=== PATIENT | female | born 1995 ===

== ENCOUNTER 2020-09-14 14:00 | Outpatient (REF) | payer OTHER, SELFPAY | END 2020-09-14 14:01 | disposition home or self-care (01) | LOC: HO.LAB 14:00 | PROVIDERS: Visit Provider Internal Medicine | DX: Z20.828 Contact with and (suspected) exposure to other viral communicable diseases (principal) | CPT/HCPCS: C9803; U0003 ==

== ENCOUNTER 2020-10-17 13:52 | Outpatient (REF) | payer OTHER, SELFPAY | END 2020-10-17 13:53 | disposition home or self-care (01) | LOC: HO.LAB 13:52 | PROVIDERS: Visit Provider Internal Medicine | DX: Z20.822 Contact with and (suspected) exposure to COVID-19 (principal) | CPT/HCPCS: 36415; C9803; U0003 ==

== ENCOUNTER 2020-11-06 15:04 | Outpatient (REF) | payer OTHER, SELFPAY | END 2020-11-06 15:05 | disposition home or self-care (01) | LOC: HO.LAB 15:04 | PROVIDERS: Visit Provider Internal Medicine | DX: Z20.822 Contact with and (suspected) exposure to COVID-19 (principal) | CPT/HCPCS: 36415; C9803; U0003; U0005 ==

== ENCOUNTER 2021-09-25 10:32 | Outpatient (REF) | payer OTHER, SELFPAY ==
[2021-09-26 14:17] LABS: CT PCR NOT DETECTED (Not Detect.); NG PCR NOT DETECTED (Not Detect.)
[2021-09-27 09:02] LABS: BV Int Neg Control Negative (Negative); BV Int Pos Control Positive (Positive)
== END 2021-09-25 10:33 | disposition home or self-care (01) ==
LOC: HO.LAB 10:32
PROVIDERS: Visit Provider Advanced Practice Midwife
DX: Z01.419 Encounter for gynecological examination (general) (routine) without abnormal findings (principal); N92.1 Excessive and frequent menstruation with irregular cycle; Z11.59 Encounter for screening for other viral diseases; Z11.4 Encounter for screening for human immunodeficiency virus [HIV]; Z11.3 Encounter for screening for infections with a predominantly sexual mode of transmission; Z11.8 Encounter for screening for other infectious and parasitic diseases; Z79.3 Long term (current) use of hormonal contraceptives
CPT/HCPCS: 87480; 87491; 87510; 87591; 87660; 88142

== ENCOUNTER 2022-03-04 13:35 | Outpatient (REF) | payer OTHER, SELFPAY ==
[2022-03-05 13:11] LABS: BV Int Neg Control Negative (Negative); BV Int Pos Control Positive (Positive)
== END 2022-03-04 13:36 | disposition home or self-care (01) ==
LOC: HO.LAB 13:35
PROVIDERS: Visit Provider Advanced Practice Midwife
DX: Z30.09 Encounter for other general counseling and advice on contraception (principal); R87.615 Unsatisfactory cytologic smear of cervix; Z20.2 Contact with and (suspected) exposure to infections with a predominantly sexual mode of transmission
CPT/HCPCS: 87480; 87510; 87660; 88142; 99212

== ENCOUNTER 2022-04-26 09:38 | Outpatient (REF) | payer OTHER, SELFPAY ==
[2022-04-26 17:53] LABS: CT PCR NOT DETECTED (Not Detect.); NG PCR NOT DETECTED (Not Detect.)
[2022-04-27 15:12] LABS: BV Int Neg Control Negative (Negative); BV Int Pos Control Positive (Positive)
== END 2022-04-26 09:39 | disposition home or self-care (01) ==
LOC: HO.LAB 09:38
PROVIDERS: Visit Provider Advanced Practice Midwife
DX: Z01.419 Encounter for gynecological examination (general) (routine) without abnormal findings (principal); A59.9 Trichomoniasis, unspecified; Z11.3 Encounter for screening for infections with a predominantly sexual mode of transmission; Z11.8 Encounter for screening for other infectious and parasitic diseases; Z97.5 Presence of (intrauterine) contraceptive device
CPT/HCPCS: 87480; 87491; 87510; 87591; 87660; 99212

== ENCOUNTER 2022-06-04 12:32 | Outpatient (REF) | payer OTHER, SELFPAY ==
[2022-06-04 13:59] LABS: Hematocrit 35.6 % (37.0-47.0); Hemoglobin 11.1 g/dl (12.0-16.0); Mean Corpuscular HGB Conc 31.2 g/dl (31.0-35.0); Mean Corpuscular Hemoglobin 27.1 pg (27.0-33.0); Mean Corpuscular Volume 86.8 fL (80.0-98.0); Mean Platelet Volume 10.8 fL (9.4-12.3); Platelet Count 286 X10*3/uL (160-400)
[2022-06-04 14:28] LABS: Alanine Aminotransferase 12 U/L (0-31); Albumin Level 4.1 g/dL (3.5-5.0); Alkaline Phosphatase 84 U/L (39-117); Anion Gap 13 (12-20); Aspartate Amino Transferase 15 U/L (5-31); Blood Urea Nitrogen 7 mg/dL (9-16); Calcium 9.1 mg/dL (8.4-10.2); Carbon Dioxide 26 mmol/L (22-29); Chloride 105 mmol/L (96-108); Estimated Glomerular Filt Rate > 60; Glucose Fasting 86 mg/dL (60-99); Potassium 4.9 mmol/L (3.3-5.1); Sodium 139 mmol/L (135-145); Total Protein 7.7 g/dL (6.5-8.0)
[2022-06-04 14:36] LABS: TSH reflex Free T4 1.11 uIU/mL (0.32-4.0)
[2022-06-04 14:39] LABS: Bilirubin Direct < 0.2 mg/dL (0.0-0.5); Bilirubin Total 0.3 mg/dL (0.0-1.0)
== END 2022-06-04 12:33 | disposition home or self-care (01) ==
LOC: HO.WFDLDS 12:32
PROVIDERS: Visit Provider Hospitalist
DX: Z00.00 Encounter for general adult medical examination without abnormal findings (principal)
CPT/HCPCS: 36415; 80053; 80076; 82248; 84443; 85027

== ENCOUNTER 2022-10-02 15:33 | Emergency (ER) | payer OTHER, SELFPAY ==
--- NOTE | ~2022-10-02 | US_ITS ---
EXAMINATION: US ABDOMEN LIMITED CLINICAL INFORMATION: Right upper quadrant pain. COMPARISON: None TECHNIQUE: Real-time imaging of the right upper quadrant abdominal viscera. FINDINGS: PANCREAS: Visualized pancreas is grossly unremarkable. Portion of pancreatic tail is obscured by bowel gas precluding assessment. LIVER: Normal size measuring 13 cm in craniocaudal dimension. Slightly increased homogeneous hepatic echotexture, possibly mild steatosis. No liver lesion. No morphologic features of advanced cirrhosis. No intrahepatic biliary ductal dilation. Normal directional flow demonstrated in the main portal vein. GALLBLADDER: Normal. The gallbladder is physiologically distended without evidence of stones, sludge, polyps, wall thickening or pericholecystic fluid. Patient did report tenderness while scanning over the gallbladder per technologist note. COMMON BILE DUCT: Normal in caliber measuring 0.4 cm in diameter. RIGHT KIDNEY: Normal. No hydronephrosis. No renal calculi or focal parenchymal lesions. The kidney measures 8.6 cm in maximum dimension. FREE FLUID: None. US/US abdomen limited IMPRESSION: 1. No evidence of cholelithiasis or sonographic findings of acute cholecystitis. 2. No biliary ductal dilation. 3. Slightly increased hepatic echogenicity, possibly mild steatosis.
[2022-10-02 15:50] VITALS: BP 105/70; PULSE 89; RESP 18; TEMP 36.1; O2SAT 97; BMI 32.9
--- NOTE | 2022-10-02 15:51 | ED_ITS ---
HPI - Abdominal Pain General Chief Complaint: Abdominal Pain <JOANNE Oconnor - Last Filed: 10/02/22 15:53> Stated Complaint: gallbladder scan, urgent care referral <JOANNE Oconnor - Last Filed: 10/02/22 15:53> Time Seen by Provider: 10/02/22 18:47 <JOANNE Oconnor - Last Filed: 10/02/22 15:53> Source: patient <Adolfo Randhawa MD - Last Filed: 10/02/22 20:00> Mode of arrival: ambulatory <Adolfo Randhawa MD - Last Filed: 10/02/22 20:00> Limitations: no limitations <Adolfo Randhawa MD - Last Filed: 10/02/22 20:00> History of Present Illness HPI narrative: Patient is 27 years old healthy had COVID 2 weeks ago since then compla ining of pain in upper abdomen increases on eating food more localized on the right side no nausea no vomiting no diarrhea no urinary complaints patient is dull , no fever chills. <Adolfo Randhawa MD - Last Filed: 10/02/22 20:00> Related Data Home Medications: Home Medications Medication Instructions Recorded Confirmed etonogestrel 68 mg subdermal subdermal 03/04/22 06/04/22 implant (Nexplanon) Previous Rx's Medication Instructions Recorded albuterol sulfate 90 mcg/actuation 1 inh inhalation Q4-6H PRN 12/04/21 breath activated powder inhaler shortness of breath or wheezing #1 ea pantoprazole 40 mg tablet,delayed 40 mg PO DAILY #30 tabs 10/02/22 release (Protonix) <JOANNE Oconnor - Last Filed: 10/02/22 15:53> Allergies/Adverse Reactions: Allergies Allergy/AdvReac Type Severity Reaction Status Date / Time No Known Allergies Allergy Verified 10/02/22 15:53 <JOANNE Oconnor - Last Filed: 10/02/22 15:53> Review of Systems Review of Systems Yes all other systems are reviewed and are negative <Adolfo Randhawa MD - Last Filed: 10/02/22 20:00> PMFSH Past Medical History Medical History: Medical History Forehead laceration <JOANNE Oconnor - Last Filed: 10/02/22 15:53> Surgical History: Surgical History Hx of tonsillectomy S/P foot surgery, left [place] teeth removed <JOANNE Oconnor - Last Filed: 10/02/22 15:53> Family History Family History: Family History Father Diabetes Other Mental health disorder <JOANNE Oconnor - Last Filed: 10/02/22 15:53> Social History Social History: Social History Housing: Apartment Alcohol intake: never Patient Tobacco Use Status: Never used Tobacco e-Cigarette/Vaping Use: Never Used Second Hand Smoke Exposure: No Advance Directives: No Advance Directives Information Provided: No service: No Current occupational status: employed 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[employer] Gender identity: Female Cognitive needs: No Hearing needs: No Vision needs: No <JOANNE Oconnor - Last Filed: 10/02/22 15:53> Physical Exam ED Vital Signs: Vital Signs - 24 hr 10/02/22 15:50 10/02/22 18:49 Temperature 97.0 F 98.6 F Pulse Rate 89 92 Respiratory Rate 18 17 Blood Pressure 105/70 107/57 L Pulse Oximetry 97 99 Oxygen Delivery Method Room Air Room Air BMI result Body Mass Index 32.9 <JOANNE Oconnor - Last Filed: 10/02/22 15:53> Vital Signs - 24 hr 10/02/22 15:50 10/02/22 18:49 Temperature 97.0 F 98.6 F Pulse Rate 89 92 Respiratory Rate 18 17 Blood Pressure 105/70 107/57 L Pulse Oximetry 97 99 Oxygen Delivery Method Room Air Room Air BMI result Body Mass Index 32.9 <Adolfo Randhawa MD - Last Filed: 10/02/22 20:00> Appearance: Alert. Oriented X3. No acute distress. ENT: Pharynx normal. Oral Mucosa moist Neck: Normal inspection. Neck supple. CVS: Normal heart rate and rhythm. Pulses normal. Respiratory: No respiratory distress. Equal air entry bilateral, no wheezing/rales/rhonchi Abdomen: Soft mild tenderness ruq no rebound tenderness /guarding Bowel sounds are present, no mass palpable, no CVA tenderness Skin: Skin warm and dry. Normal skin color. Normal skin turgor. Extremities: No lower extremity edema. No calf tenderness Neuro: Oriented X 3. No motor deficit. <Adolfo Randhawa MD - Last Filed: 10/02/22 20:00> Course Course Course Narrative: RME - 27 yo female with history of COVID two weeks ago who presents to the ER from Urgent Care for evaluation of 1 week of post prandial lower abdominal pain. +Piepr's sign at Urgent Care and concern for possible gallbladder etiology. Will get labs and U/S for further evaluation. Stable to go back to the waiting room until treatment room is available. <JOANNE Oconnor - Last Filed: 10/02/22 15:53> Medical Decision Making Medical Decision Making MDM Narrative: Patient nonspecific upper abdominal pain ultrasound abdomen negative for gallbladder disease no gallstones showed hepatic steatosis. Patient advised with the fat intake/alcohol/carbohydrate and follow-up PCP <Adolfo Randhawa MD - Last Filed: 10/02/22 20:00> Lab Data MDM Lab Attestation statement: I reviewed the patient's lab results. <Adolfo Randhawa MD - Last Filed: 10/02/22 20:00> Result Diagrams: 10/02/22 18:06 10/02/22 18:06 <JOANNE Oconnor - Last Filed: 10/02/22 15:53> Labs: Lab Results 10/02/22 10/02/22 10/02/22 Range/Units 18:06 18:06 19:23 WBC 13.0 H (4.8-10.8) X10*3/uL RBC 4.67 (4.20-5.50) X10*6/uL Hgb 12.0 (12.0-16.0) g/dl Hct 38.6 (37.0-47.0) % MCV 82.7 (80.0-98.0) fL MCH 25.7 L (27.0-33.0) pg MCHC 31.1 (31.0-35.0) g/dl RDW 14.6 (11.0-16.0) % Plt Count 333 (160-400) X10*3/uL MPV 10.6 (9.4-12.3) fL Immature Gran % (Auto) 0.3 (0.0-0.4) % Neut % (Auto) 70.7 (45-73) % Lymph % (Auto) 23.6 (20-40) % [place] % (Auto) 4.5 (2-11) % Eos % (Auto) 0.5 (0-4) % Baso % (Auto) 0.4 (0-2) % Lymph # (Auto) 3.1 (1.2-4.9) X10*3/uL [place] # (Auto) 0.6 (0.1-1.2) X10*3/uL Eos # (Auto) 0.1 (0.0-0.4) X10*3/uL Baso # (Auto) 0.1 (0.0-0.2) X10*3/uL Abs Immat Gran (auto) 0.04 H (0.00-0.03) X10*3/uL Absolute Neuts (auto) 9.2 H (2.0-8.3) x10*3/uL Absolute Nucleated RBC 0.000 (0.0-0.012) X10*3/uL Nucleated RBC % (auto) 0.0 (0.0-0.2) /100WBC Sodium 139 (135-145) mmol/L Potassium 3.6 D (3.3-5.1) mmol/L Chloride 106 (96-108) mmol/L Carbon Dioxide 21 L (22-29) mmol/L Anion Gap 16 (12-20) BUN 10 (9-16) mg/dL Creatinine 0.77 (0.5-1.4) mg/dL Estim Creat Clear Calc 123.6 Estimated GFR > 60 Random Glucose 74 (60-115) mg/dL Calcium 9.8 D (8.4-10.2) mg/dL Magnesium 1.7 (1.6-2.6) mg/dL Total Bilirubin 0.4 (0.0-1.0) mg/dL Direct Bilirubin 0.2 (0.0-0.5) mg/dL AST 17 (5-31) U/L ALT 10 (0-31) U/L Alkaline Phosphatase 94 (39-117) U/L Total Protein 8.6 H (6.5-8.0) g/dL Albumin 4.6 (3.5-5.0) g/dL Lipase 16 (8-78) U/L Urine Color Yellow Urine Appearance Hazy Urine pH 5.5 (5.0-9.0) Ur Specific [place] 1.025 (1.005-1.025) Urine Protein Negative (Neg-Trace) mg/dL Urine Glucose (UA) Negative (Negative) mg/dL Urine Ketones Trace (Negative) mg/dL Urine Blood Negative (Negative) Urine Nitrite Negative (Negative) Ur Leukocyte Esterase Negative (Negative) Urine Test (NEGATIVE) 10/02/22 Range/Units 19:23 WBC (4.8-10.8) X10*3/uL RBC (4.20-5.50) X10*6/uL Hgb (12.0-16.0) g/dl Hct (37.0-47.0) % MCV (80.0-98.0) fL MCH (27.0-33.0) pg MCHC (31.0-35.0) g/dl RDW (11.0-16.0) % Plt Count (160-400) X10*3/uL MPV (9.4-12.3) fL Immature Gran % (Auto) (0.0-0.4) % Neut % (Auto) (45-73) % Lymph % (Auto) (20-40) % [place] % (Auto) (2-11) % Eos % (Auto) (0-4) % Baso % (Auto) (0-2) % Lymph # (Auto) (1.2-4.9) X10*3/uL [place] # (Auto) (0.1-1.2) X10*3/uL Eos # (Auto) (0.0-0.4) X10*3/uL Baso # (Auto) (0.0-0.2) X10*3/uL Abs Immat Gran (auto) (0.00-0.03) X10*3/uL Absolute Neuts (auto) (2.0-8.3) x10*3/uL Absolute Nucleated RBC (0.0-0.012) X10*3/uL Nucleated RBC % (auto) (0.0-0.2) /100WBC Sodium (135-145) mmol/L Potassium (3.3-5.1) mmol/L Chloride (96-108) mmol/L Carbon Dioxide (22-29) mmol/L Anion Gap (12-20) BUN (9-16) mg/dL Creatinine (0.5-1.4) mg/dL Estim Creat Clear Calc Estimated GFR Random Glucose (60-115) mg/dL Calcium (8.4-10.2) mg/dL Magnesium (1.6-2.6) mg/dL Total Bilirubin (0.0-1.0) mg/dL Direct Bilirubin (0.0-0.5) mg/dL AST (5-31) U/L ALT (0-31) U/L Alkaline Phosphatase (39-117) U/L Total Protein (6.5-8.0) g/dL Albumin (3.5-5.0) g/dL Lipase (8-78) U/L Urine Color Urine Appearance Urine pH (5.0-9.0) Ur Specific [place] (1.005-1.025) Urine Protein (Neg-Trace) mg/dL Urine Glucose (UA) (Negative) mg/dL Urine Ketones (Negative) mg/dL Urine Blood (Negative) Urine Nitrite (Negative) Ur Leukocyte Esterase (Negative) Urine Test NEGATIVE (NEGATIVE) <JOANNE Oconnor - Last Filed: 10/02/22 15:53> Lab Results 10/02/22 10/02/22 10/02/22 Range/Units 18:06 18:06 19:23 WBC 13.0 H (4.8-10.8) X10*3/uL RBC 4.67 (4.20-5.50) X10*6/uL Hgb 12.0 (12.0-16.0) g/dl Hct 38.6 (37.0-47.0) % MCV 82.7 (80.0-98.0) fL MCH 25.7 L (27.0-33.0) pg MCHC 31.1 (31.0-35.0) g/dl RDW 14.6 (11.0-16.0) % Plt Count 333 (160-400) X10*3/uL MPV 10.6 (9.4-12.3) fL Immature Gran % (Auto) 0.3 (0.0-0.4) % Neut % (Auto) 70.7 (45-73) % Lymph % (Auto) 23.6 (20-40) % [place] % (Auto) 4.5 (2-11) % Eos % (Auto) 0.5 (0-4) % Baso % (Auto) 0.4 (0-2) % Lymph # (Auto) 3.1 (1.2-4.9) X10*3/uL [place] # (Auto) 0.6 (0.1-1.2) X10*3/uL Eos # (Auto) 0.1 (0.0-0.4) X10*3/uL Baso # (Auto) 0.1 (0.0-0.2) X10*3/uL Abs Immat Gran (auto) 0.04 H (0.00-0.03) X10*3/uL Absolute Neuts (auto) 9.2 H (2.0-8.3) x10*3/uL Absolute Nucleated RBC 0.000 (0.0-0.012) X10*3/uL Nucleated RBC % (auto) 0.0 (0.0-0.2) /100WBC Sodium 139 (135-145) mmol/L Potassium 3.6 D (3.3-5.1) mmol/L Chloride 106 (96-108) mmol/L Carbon Dioxide 21 L (22-29) mmol/L Anion Gap 16 (12-20) BUN 10 (9-16) mg/dL Creatinine 0.77 (0.5-1.4) mg/dL Estim Creat Clear Calc 123.6 Estimated GFR > 60 Random Glucose 74 (60-115) mg/dL Calcium 9.8 D (8.4-10.2) mg/dL Magnesium 1.7 (1.6-2.6) mg/dL Total Bilirubin 0.4 (0.0-1.0) mg/dL Direct Bilirubin 0.2 (0.0-0.5) mg/dL AST 17 (5-31) U/L ALT 10 (0-31) U/L Alkaline Phosphatase 94 (39-117) U/L Total Protein 8.6 H (6.5-8.0) g/dL Albumin 4.6 (3.5-5.0) g/dL Lipase 16 (8-78) U/L Urine Color Yellow Urine Appearance Hazy Urine pH 5.5 (5.0-9.0) Ur Specific [place] 1.025 (1.005-1.025) Urine Protein Negative (Neg-Trace) mg/dL Urine Glucose (UA) Negative (Negative) mg/dL Urine Ketones Trace (Negative) mg/dL Urine Blood Negative (Negative) Urine Nitrite Negative (Negative) Ur Leukocyte Esterase Negative (Negative) Urine Test (NEGATIVE) 10/02/22 Range/Units 19:23 WBC (4.8-10.8) X10*3/uL RBC (4.20-5.50) X10*6/uL Hgb (12.0-16.0) g/dl Hct (37.0-47.0) % MCV (80.0-98.0) fL MCH (27.0-33.0) pg MCHC (31.0-35.0) g/dl RDW (11.0-16.0) % Plt Count (160-400) X10*3/uL MPV (9.4-12.3) fL Immature Gran % (Auto) (0.0-0.4) % Neut % (Auto) (45-73) % Lymph % (Auto) (20-40) % [place] % (Auto) (2-11) % Eos % (Auto) (0-4) % Baso % (Auto) (0-2) % Lymph # (Auto) (1.2-4.9) X10*3/uL [place] # (Auto) (0.1-1.2) X10*3/uL Eos # (Auto) (0.0-0.4) X10*3/uL Baso # (Auto) (0.0-0.2) X10*3/uL Abs Immat Gran (auto) (0.00-0.03) X10*3/uL Absolute Neuts (auto) (2.0-8.3) x10*3/uL Absolute Nucleated RBC (0.0-0.012) X10*3/uL Nucleated RBC % (auto) (0.0-0.2) /100WBC Sodium (135-145) mmol/L Potassium (3.3-5.1) mmol/L Chloride (96-108) mmol/L Carbon Dioxide (22-29) mmol/L Anion Gap (12-20) BUN (9-16) mg/dL Creatinine (0.5-1.4) mg/dL Estim Creat Clear Calc Estimated GFR Random Glucose (60-115) mg/dL Calcium (8.4-10.2) mg/dL Magnesium (1.6-2.6) mg/dL Total Bilirubin (0.0-1.0) mg/dL Direct Bilirubin (0.0-0.5) mg/dL AST (5-31) U/L ALT (0-31) U/L Alkaline Phosphatase (39-117) U/L Total Protein (6.5-8.0) g/dL Albumin (3.5-5.0) g/dL Lipase (8-78) U/L Urine Color Urine Appearance Urine pH (5.0-9.0) Ur Specific [place] (1.005-1.025) Urine Protein (Neg-Trace) mg/dL Urine Glucose (UA) (Negative) mg/dL Urine Ketones (Negative) mg/dL Urine Blood (Negative) Urine Nitrite (Negative) Ur Leukocyte Esterase (Negative) Urine Test NEGATIVE (NEGATIVE) <Adolfo Randhawa MD - Last Filed: 10/02/22 20:00> Discharge Plan Discharge Clinical Impression: Fatty liver <JOANNE Oconnor - Last Filed: 10/02/22 15:53> Patient Disposition: Home, Self-Care <JOANNE Oconnor - Last Filed: 10/02/22 15:53> Instructions: Non-Alcoholic Fatty Liver Disease (ED) <JOANNE Oconnor - Last Filed: 10/02/22 15:53> Additional Instructions: About carbohydrate/alcohol/greasy foods Drink plenty of fluids Protonix daily Follow with the PCP <JOANNE Oconnor - Last Filed: 10/02/22 15:53> Prescriptions: New pantoprazole [Protonix] 40 mg tablet,delayed release (DR/EC) 40 mg PO DAILY Qty: 30 0RF No Action albuterol sulfate 90 mcg/actuation aerosol powdr breath activated 1 inh inhalation Q4-6H PRN (Reason: shortness of breath or wheezing) Qty: 1 8RF Rx Instructions: please call me if unable to fill [phone] pt needs inhaler Nexplanon 68 mg implant subdermal <JOANNE Oconnor - Last Filed: 10/02/22 15:53>
[2022-10-02 18:18] LABS: MANUAL DIFF FLAG NO
[2022-10-02 18:19] LABS: Basophils Absolute Auto 0.1 X10*3/uL (0.0-0.2); Basophils Percent Auto 0.4 % (0-2); Eosinophils Absolute Auto 0.1 X10*3/uL (0.0-0.4); Eosinophils Percent Auto 0.5 % (0-4); Hematocrit 38.6 % (37.0-47.0); Imm Gran Abs Auto 0.04 X10*3/uL (0.00-0.03); Imm Gran Pct Auto 0.3 % (0.0-0.4); Lymphocytes Absolute Auto 3.1 X10*3/uL (1.2-4.9); Lymphocytes Percent Auto 23.6 % (20-40); Mean Corpuscular HGB Conc 31.1 g/dl (31.0-35.0); Mean Corpuscular Hemoglobin 25.7 pg (27.0-33.0); Mean Corpuscular Volume 82.7 fL (80.0-98.0); Mean Platelet Volume 10.6 fL (9.4-12.3); Monocytes Absolute Auto 0.6 X10*3/uL (0.1-1.2); Monocytes Percent Auto 4.5 % (2-11); Neutrophils Absolute Auto 9.2 x10*3/uL (2.0-8.3); Neutrophils Percent Auto 70.7 % (45-73); Platelet Count 333 X10*3/uL (160-400); Red Blood Count 4.67 X10*6/uL (4.20-5.50); Red Cell Distribution Width 14.6 % (11.0-16.0)
[2022-10-02 18:45] LABS: Alanine Aminotransferase 10 U/L (0-31); Albumin Level 4.6 g/dL (3.5-5.0); Alkaline Phosphatase 94 U/L (39-117); Anion Gap 16 (12-20); Aspartate Amino Transferase 17 U/L (5-31); Bilirubin Direct 0.2 mg/dL (0.0-0.5); Bilirubin Total 0.4 mg/dL (0.0-1.0); Blood Urea Nitrogen 10 mg/dL (9-16); Calcium 9.8 mg/dL (8.4-10.2); Carbon Dioxide 21 mmol/L (22-29); Chloride 106 mmol/L (96-108); Creatinine Clr Calc Pharmacy 123.6; Estimated Glomerular Filt Rate > 60; Glucose Random 74 mg/dL (60-115); Lipase 16 U/L (8-78); Magnesium 1.7 mg/dL (1.6-2.6); Potassium 3.6 mmol/L (3.3-5.1); Sodium 139 mmol/L (135-145); Total Protein 8.6 g/dL (6.5-8.0)
[2022-10-02 18:49] VITALS: BP 107/57; PULSE 92; RESP 17; TEMP 37; O2SAT 99
[2022-10-02 19:43] LABS: Appearance Urine Hazy; Color Urine Yellow; Glucose Urine UA Negative (Negative); Leukocyte Esterase Urine Negative (Negative); Nitrite Urine Negative (Negative); PH 5.5 (5.0-9.0); Specific Gravity - Urine 1.025 (1.005-1.025); Urine Blood Negative (Negative); Urine Ketones Trace mg/dL (Negative); Urine Protein Negative (Neg-Trace)
[2022-10-02 19:46] LABS: UPreg QC Valid YES; Urine Pregnancy NEGATIVE (NEGATIVE)
== END 2022-10-02 20:05 | disposition home or self-care (01) ==
PROVIDERS: Physician Assistant; Emergency Provider Internal Medicine; PCP Hospitalist
DX: K76.0 Fatty (change of) liver, not elsewhere classified (principal); R10.9 Unspecified abdominal pain; Z79.899 Other long term (current) drug therapy
CPT/HCPCS: 36415; 76705; 80048; 80076; 81003; 81025; 83690; 83735; 85025; 99283; 99284

== ENCOUNTER 2023-03-13 13:51 | Outpatient (REF) | payer OTHER, SELFPAY ==
[2023-03-14 12:03] LABS: CT PCR NOT DETECTED (Not Detect.); NG PCR NOT DETECTED (Not Detect.)
[2023-03-14 13:57] LABS: BV Int Neg Control Negative (Negative); BV Int Pos Control Positive (Positive)
== END 2023-03-13 13:52 | disposition home or self-care (01) ==
LOC: HO.LNP 13:51
PROVIDERS: PCP Hospitalist; Visit Provider Advanced Practice Midwife
DX: A59.9 Trichomoniasis, unspecified (principal); Z20.2 Contact with and (suspected) exposure to infections with a predominantly sexual mode of transmission; Z97.5 Presence of (intrauterine) contraceptive device
CPT/HCPCS: 0353U; 87480; 87510; 87660

== ENCOUNTER → 2023-03-20 08:48 | Outpatient (BNVA) | payer OTHER, SELFPAY | PROVIDERS: PCP Hospitalist; Visit Provider Advanced Practice Midwife | DX: Z30.46 Encounter for surveillance of implantable subdermal contraceptive (principal); Z30.42 Encounter for surveillance of injectable contraceptive | CPT/HCPCS: 11982; 81025; 96372; 99212 ==

== ENCOUNTER 2023-06-05 10:46 | Outpatient (AMB) | payer OTHER, SELFPAY ==
[2023-06-05 11:04] VITALS: BMI 31.8
--- NOTE | 2023-06-05 11:04 | AM.OFFVISNUR ---
Intake Vital Signs 06/05/23 11:04 Height 5 ft 5 in Weight 86.636 kg BMI 31.8 Intake Visit Reasons: Depo Allergies No Known Allergies Allergy (Verified 03/20/23 08:59) Nursing Note Lesly is here for her scheduled Depo-Provera inj. She reports slight decrease in her libido, but not concerning to her. Follow up in 12 weeks for next inj. Office Procedures Depo Questionnaire If YES to any of the following questions, please consult a provider. Date of last injection: 03/20/23 Date of last menstrual period: 04/03/23 Date of last gynecology exam: 03/13/23 Menstrual pattern since last injection has been: Light Irregular bleeding?: No Breast lumps or other breast changes?: No Changes in weight or appetite?: No Depression or changes in mood?: No Abnormal hair growth or loss?: No Skin problems (rash, acne, discoloration)?: No Pain at the injection site?: No Headaches?: No Nervousness?: No Abdominal pain or cramping?: No Dizziness or nausea?: No Fatigue or weakness?: No Decrease in sexual drive?: Yes (slight) Chest pain or shortness of breath?: No Swelling in arms or legs?: No Form completed by?: Robel Bolivar LPN Office Meds Depo-Provera 150 mg/mL intramuscular syringe Performing Provider: Lizeth Charlton CNM Performing Location: [facility] Administered by: Rebecca Bolivar LPN on 06/05/23 11:04 Dose Route Admin Location Dispensed Lot Number Expiration Date [facility] Jewel[employer] Sales Coordinator 150 mg IM Left deltoid 1 mL [id number] 07/22/25 23158-452-81 [facility] Coding Level of Care Code Established Pt Est Pt Level 1 (62035) Patient Type Established History Problem Focused Exam Problem Focused Medical Decision Making Straight Forward Time Spent (min) 15 Assessment & Plan Assessment & Plan Orders: Orders AMB Medroxyprogesterone Injection Patient Supplied Today Z30.42 - Encounter for surveillance of injectable contraceptive
== END 2023-06-05 10:54 | disposition home or self-care (01) ==
PROVIDERS: PCP Hospitalist; Visit Provider Advanced Practice Midwife
DX: Z30.42 Encounter for surveillance of injectable contraceptive (principal)

== ENCOUNTER → 2023-06-05 10:46 | Outpatient (BNVA) | payer OTHER, SELFPAY | PROVIDERS: PCP Hospitalist; Visit Provider Advanced Practice Midwife | DX: Z30.42 Encounter for surveillance of injectable contraceptive (principal) | CPT/HCPCS: 96372; 99211; J1050 ==

== ENCOUNTER 2023-09-30 10:29 | Outpatient (AMB) | payer OTHER, SELFPAY ==
--- NOTE | 2023-09-30 10:30 | A.OFFVIS_ITS ---
Intake Vital Signs 09/30/23 10:31 Height 5 ft 5 in Weight 200 lb BMI 33.3 BP 102/58 L Intake Visit Reasons: BC Consult Intake Note: Would like to restart the depo Collarette Separator Required: No Allergies No Known Allergies Allergy (Verified 09/30/23 10:32) Medication List - Last Reconciled 09/30/23 by Lizeth Charlton CNM albuterol sulfate 90 mcg/actuation 1 inh inhalation Q4-6H PRN NS guanfacine ER 2 mg PO DAILY medroxyprogesterone (Depo-Provera) 150 mg IM Q12W paroxetine HCl ER 25 mg PO DAILY trazodone 100 mg PO BEDTIME Is last menstrual period known: Yes Last menstrual period: 08/15/23 Post menopausal: No HPI BC Consult HPI Details Patient had had her Nexplanon removed and had started on Depo-Provera but then she missed her last shot so she was told she needed a visit to restarted again she says she has not had sex in many many weeks because she has been bleeding ever since the Depo-Provera wore off in August. And before that she says she used a condom. She definitely wants to get back on the Depo she has noticed that Depo and the Nexplanon both contribute a little bit to weight gain but she is trying to eat as good as she can and watch for that and do exercise and has started back at the gym she had bunion surgery on both feet in the past year but says that is much improved now and she is back working and thinks it was worth it and has much improved. She is not exactly sure when her next Pap is due but her annual should be coming up soon [facility] Medical History Forehead laceration Surgical History S/P foot surgery, left [place] teeth removed Hx of tonsillectomy Family History Father Diabetes Other Mental health disorder Social History Housing: Apartment Alcohol intake: never Patient Tobacco Use Status: Never used Tobacco e-Cigarette/Vaping Use: Never Used Second Hand Smoke Exposure: No service: No Current occupational status: employed 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[email or web address] Gender identity: Female Cognitive needs: No Hearing needs: No Vision needs: No Female Reproductive History Menstrual Age of Menarche: 14 Duration of menses: other Date of last menstrual period: 08/15/23 Total pregnancies: 0 Date of last pap smear: 03/05/22 (negative) Physical Exam Vital Signs: Last Vital Signs BP 102/58 L 09/30/23 10:31 BMI result Body Mass Index 33.3 Assessment & Plan Assessment & Plan (1) control counseling: Code(s): Z. - Encounter for other general counseling and advice on contraception Plan Reviewed the side effects of Depo-Provera as well as the Nexplanon which she had had in the past and her previous pattern of irregular menses that were occasionally heavy she would find it if they were very heavy they were shorter and if they were less heavy they would be longer. Since she had missed the last Depo she has been bleeding somewhat heavy and this can be within normal limits. She has not had unprotected sex so she may restart the Depo-Provera at her soonest opportunity while she is still bleeding in before she does have any unprotected sex I did review condom use as well. She will make her appointment for her annual exam whenever it is due and she can return to the nurses in the [facility] at the [facility] for the injection every 12 weeks. I also reviewed physical activity and diet with her to ensure she does not gain too much weight with the Depo-Provera Medications: Changed From medroxyprogesterone (Depo-Provera) To be given in office the day the Nexplanon is removed if on menses and PT negative and contracepting. 150 mg IM Q12W 1 mL 4RF To medroxyprogesterone (Depo-Provera) to be given in office before any upi and while on menses 150 mg IM Q12W 1 mL 4RF Coding Level of Care Code Est Pt Level 3 (00230) Diagnoses control counseling Z30.
[2023-09-30 10:31] VITALS: BP 102/58; BMI 33.3
== END 2023-09-30 11:30 | disposition home or self-care (01) ==
LOC: HO.HWSM 10:29
PROVIDERS: Visit Provider Advanced Practice Midwife
DX: Z30.09 Encounter for other general counseling and advice on contraception (principal)
CPT/HCPCS: 99213

== ENCOUNTER → 2023-09-30 10:29 | Outpatient (BNVA) | payer OTHER, SELFPAY | PROVIDERS: Visit Provider Advanced Practice Midwife | DX: Z30.09 Encounter for other general counseling and advice on contraception (principal) | CPT/HCPCS: 99212 ==

== ENCOUNTER 2023-10-08 13:26 | Outpatient (AMB) | payer OTHER, SELFPAY ==
[2023-10-08 13:47] VITALS: BMI 33.4
--- NOTE | 2023-10-08 13:47 | AM.OFFVISNUR ---
Intake Vital Signs 10/08/23 13:47 Height 5 ft 5 in Weight 201 lb BMI 33.4 Intake Visit Reasons: depo Intake Note: Pt is here for Depo restart. Last depo injection was 06/05/23. Pt denies any UPI in the last 2 weeks. UPT today was negative. Pt reports LMP was 08/16/23 and she has continued to bleed off and on since that time d/t missed dose of Depo at 12 weeks out. 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 Last depo injection was 06/05/23. Pt denies any UPI in the last 2 weeks. UPT today was negative. Pt reports LMP was 08/16/23 and she has continued to bleed off and on since that time d/t missed dose of Depo at 12 weeks out. No c/o. Pt tolerated injection well. She will schedule her next injection in 12 weeks. Pt verbalizes understanding and agrees with plan. No further questions. Office Procedures Depo Questionnaire If YES to any of the following questions, please consult a provider. Date of last injection: 06/05/23 Date of last menstrual period: 08/14/23 Date of last gynecology exam: 03/13/23 Menstrual pattern since last injection has been: Normal test in office results: Negative Irregular bleeding?: Yes Breast lumps or other breast changes?: No Changes in weight or appetite?: No Depression or changes in mood?: No Abnormal hair growth or loss?: No Skin problems (rash, acne, discoloration)?: No Pain at the injection site?: No Headaches?: No Nervousness?: No Abdominal pain or cramping?: No Dizziness or nausea?: No Fatigue or weakness?: No Decrease in sexual drive?: No Chest pain or shortness of breath?: No Swelling in arms or legs?: No Form completed by?: Jessica Alan boarding mother Meds Depo-Provera 150 mg/mL intramuscular syringe Performing Provider: Lizeth Charlton CNM Performing Location: [facility] Administered by: Jessica Alan on 10/08/23 13:56 Dose Route Admin Location Dispensed Lot Number Expiration Date [facility] Medical Information Specialist 150 mg IM left deltoid 1 mL [id number] 10/22/25 16853-783-57 [facility] Results AMB Test Urine AMB Test Urine Negative Last Edit by Jessica Alan on 10/08/23 13:56 Coding Level of Care Code Established Pt Est Pt Level 1 (55956) Patient Type Established History Problem Focused Medical Decision Making Straight Forward Time Spent (min) 16 Assessment & Plan Assessment & Plan Plan Pt will schedule next injection in 12 weeks. Orders: Orders AMB Medroxyprogesterone Injection Patient Supplied Today Z30.42 - Encounter for surveillance of injectable contraceptive Patient Instructions: Make appt for next injection in 12 weeks. Pt verbalizes understanding and agrees with plan. No further questions.
== END 2023-10-08 13:47 | disposition home or self-care (01) ==
PROVIDERS: Visit Provider Advanced Practice Midwife
DX: Z30.42 Encounter for surveillance of injectable contraceptive (principal)

== ENCOUNTER → 2023-10-08 13:26 | Outpatient (BNVA) | payer OTHER, SELFPAY | PROVIDERS: Visit Provider Advanced Practice Midwife | DX: Z30.42 Encounter for surveillance of injectable contraceptive (principal) | CPT/HCPCS: 96372; 99211; J1050 ==

== ENCOUNTER 2023-12-29 08:48 | Outpatient (AMB) | payer OTHER, SELFPAY ==
[2023-12-29 09:07] VITALS: BMI 33.6
--- NOTE | 2023-12-29 09:07 | AM.OFFVISNUR ---
Intake Vital Signs 12/29/23 09:07 Height 5 ft 5 in Weight 91.626 kg BMI 33.6 Intake Visit Reasons: DEPO Allergies No Known Allergies Allergy (Verified 09/30/23 10:32) Nursing Note Lesly is here today for her scheduled Depo-Provera inj. She denies any probles or concerns. Follow up in 12 weeks for next injection. Office Procedures Depo Questionnaire If YES to any of the following questions, please consult a provider. Date of last injection: 10/08/23 Date of last menstrual period: 12/12/23 Date of last gynecology exam: 12/11/22 Menstrual pattern since last injection has been: Light Irregular bleeding?: No Breast lumps or other breast changes?: No Changes in weight or appetite?: No Depression or changes in mood?: No Abnormal hair growth or loss?: No Skin problems (rash, acne, discoloration)?: No Pain at the injection site?: No Headaches?: No Nervousness?: No Abdominal pain or cramping?: No Dizziness or nausea?: No Fatigue or weakness?: No Decrease in sexual drive?: No Chest pain or shortness of breath?: No Swelling in arms or legs?: No Form completed by?: Robel Bolivar LPN Office Meds Depo-Provera 150 mg/mL intramuscular syringe Performing Provider: Lizeth Charlton CNM [place] [facility] [place] [facility] Administered by: Rebecca Bolivar LPN on 12/29/23 09:09 Dose Route Admin Location Dispensed Lot Number Expiration Date [facility] Office Machine Service Supervisor 150 mg IM left deltoid 1 mL [id number] 12/20/25 93397-268-00 [facility] Coding Level of Care Code Established Pt Est Pt Level 1 (34624) Patient Type Established History Problem Focused Exam Problem Focused Medical Decision Making Straight Forward Time Spent (min) 20 Assessment & Plan Assessment & Plan Orders: Orders AMB Medroxyprogesterone Injection Patient Supplied Today Z30.42 - Encounter for surveillance of injectable contraceptive Medications: New Depo-Provera (medroxyprogesterone) 150 mg IM ONCE 1 mL 0RF NS Z30.42 - Encounter for surveillance of injectable contraceptive
== END 2023-12-29 08:58 | disposition home or self-care (01) ==
PROVIDERS: Visit Provider Advanced Practice Midwife
DX: Z30.42 Encounter for surveillance of injectable contraceptive (principal)

== ENCOUNTER → 2023-12-29 08:48 | Outpatient (BNVA) | payer OTHER, SELFPAY | PROVIDERS: Visit Provider Advanced Practice Midwife | DX: Z30.42 Encounter for surveillance of injectable contraceptive (principal) | CPT/HCPCS: 96372; 99211; J1050 ==

== ENCOUNTER 2024-03-15 08:49 | Outpatient (AMB) | payer OTHER, SELFPAY ==
[2024-03-15 09:03] VITALS: BMI 34.4
--- NOTE | 2024-03-15 09:03 | AM.OFFVISNUR ---
Intake Vital Signs 03/15/24 09:03 Height 5 ft 5 in Weight 93.894 kg BMI 34.4 Intake Visit Reasons: Depo Allergies No Known Allergies Allergy (Verified 09/30/23 10:32) Nursing Note Lesly is here today for her scheduled Depo-Provera INJ.. Pt is c/o Break through bleeding over the last few months, with menstrual like cramping. Pt has AG tomorrow with DRAKE Charlton, and was advised to discuss with her these issues she is having. Pt verbs understanding. Office Procedures Depo Questionnaire If YES to any of the following questions, please consult a provider. Date of last injection: 12/29/23 Date of last menstrual period: 03/10/24 Date of last gynecology exam: 12/18/22 Menstrual pattern since last injection has been: Normal Irregular bleeding?: Yes Breast lumps or other breast changes?: No Changes in weight or appetite?: No Depression or changes in mood?: No Abnormal hair growth or loss?: No Skin problems (rash, acne, discoloration)?: No Pain at the injection site?: No Headaches?: No Nervousness?: No Abdominal pain or cramping?: Yes Dizziness or nausea?: No Fatigue or weakness?: No Decrease in sexual drive?: No Chest pain or shortness of breath?: No Swelling in arms or legs?: No Form completed by?: Robel Bolivar LPN Office Meds Depo-Provera 150 mg/mL intramuscular syringe Performing Provider: Lizeth Charlton CNM Performing Location: [facility] [place] [facility] Administered by: Rebecca Bolivar LPN on 03/15/24 09:03 Dose Route Admin Location Dispensed Lot Number Expiration Date [facility] Skiver Counter 150 mg IM Lt deltoid 1 mL [id number] 12/20/25 56552-216-72 [facility]. Coding Level of Care Code Established Pt Est Pt Level 1 (67932) Patient Type Established History Problem Focused Medical Decision Making Straight Forward Time Spent (min) 20 Assessment & Plan Assessment & Plan Orders: Orders AMB Medroxyprogesterone Injection Patient Supplied Today Z30.42 - Encounter for surveillance of injectable contraceptive Medications: New Depo-Provera (medroxyprogesterone) 150 mg IM ONCE 1 mL 0RF NS Z30.42 - Encounter for surveillance of injectable contraceptive
== END 2024-03-15 09:01 | disposition home or self-care (01) ==
PROVIDERS: Visit Provider Advanced Practice Midwife
DX: Z30.42 Encounter for surveillance of injectable contraceptive (principal)

== ENCOUNTER → 2024-03-15 08:49 | Outpatient (BNVA) | payer OTHER, SELFPAY | PROVIDERS: Visit Provider Advanced Practice Midwife | DX: Z30.42 Encounter for surveillance of injectable contraceptive (principal) | CPT/HCPCS: 96372; 99211; J1050 ==

== ENCOUNTER 2024-03-16 13:46 | Outpatient (REF) | payer OTHER, SELFPAY ==
[2024-03-16 23:08] LABS: CT PCR NOT DETECTED (Not Detect.); NG PCR NOT DETECTED (Not Detect.)
[2024-03-17 11:02] LABS: Bacterial Vaginosis PCR NEGATIVE (Negative); Candida Group PCR NOT DETECTED (Not Detect); Candida glab krusei PCR NOT DETECTED (Not Detect); Trichomonas vaginalis PCR NOT DETECTED (Not Detect)
== END 2024-03-16 13:47 | disposition home or self-care (01) ==
LOC: HO.LAB 13:46
PROVIDERS: Visit Provider Advanced Practice Midwife
DX: Z01.419 Encounter for gynecological examination (general) (routine) without abnormal findings (principal); N89.8 Other specified noninflammatory disorders of vagina; N92.1 Excessive and frequent menstruation with irregular cycle; Z20.2 Contact with and (suspected) exposure to infections with a predominantly sexual mode of transmission
CPT/HCPCS: 0352U; 0353U; 81025; 99395

== ENCOUNTER 2024-03-16 13:46 | Outpatient (AMB) | payer OTHER, SELFPAY ==
[2024-03-16 14:10] VITALS: BP 110/60; BMI 33.8
--- NOTE | 2024-03-16 14:10 | A.OFFVIS_ITS ---
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 Required: No Hydroelectric Component Machinist Services: Hydroelectric Component Machinist Present Information Interpreted: clinical only Tray Worker: Tray Worker Present Allergies No Known Allergies Allergy (Verified 03/16/24 14:10) Medication List - Last Reconciled 03/16/24 by Lizeth Charlton CNM albuterol sulfate 90 mcg/actuation 1 inh inhalation Q4-6H PRN NS guanfacine ER 2 mg PO DAILY medroxyprogesterone (Depo-Provera) 150 mg IM Q12W paroxetine HCl ER 25 mg PO DAILY trazodone 100 mg PO BEDTIME Is last menstrual period known: No (no period because depo) PFSH Medical History Forehead laceration Surgical History S/P foot surgery, left Mohler teeth removed Hx of tonsillectomy Family History Father Diabetes Other Mental health disorder Social History Housing: Apartment Alcohol intake: never Patient Tobacco Use Status: Never used Tobacco e-Cigarette/Vaping Use: Never Used Second Hand Smoke Exposure: No service: No Current occupational status: employed 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[employer], 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 Gender identity: Female Cognitive needs: No Hearing needs: No Vision needs: No Female Reproductive History Menstrual Age of Menarche: 14 Duration of menses: 3-5 days control method: progesterone injection Total pregnancies: 0 Date of last pap smear: 03/04/22 (negative,previous pap,09/26/2021,negative) History of abnormal pap smear: No Physical Exam Vital Signs: Last Vital Signs BP 110/60 03/16/24 14:10 BMI result Body Mass Index 33.8 Const General: healthy appearing, comfortable, no acute distress, well developed and alert Nutritional Appearance: average body habitus Orientation/consciousness: patient oriented x3 Limitations: no limitations HEENT Head: Yes normocephalic Neck Neck: Yes normal visual inspection Chest Chest palpation & inspection: normal inspection of the chest Breast/axilla inspection: normal inspection of the breasts and normal inspection of the axillae Breast/axilla palpation: normal palpation of the breasts and normal palpation of the axillae Resp Effort & Inspection: normal respiratory effort GI Inspection: Yes normal to inspection, No Abdominal wall edema and No distended Palpation (GI): Soft to palpation and nontender Other: External exam within normal limits vagina pink and moist cervix nulliparous pink smooth tightly closed small os. Uterus midposition mobile nontender adnexa nontender good tone with Kegel. General: Yes bladder normal to palpation External Female Exam: normal external appearance and normal appearance of the urethra Speculum Exam - Vagina: normal appearance of the vagina, normal palpation and normal vaginal discharge Speculum Exam - Cervix: normal appearance of the cervix, normal palpation and nontender Bimanual exam- vagina & uterus: normal bimanual exam, normal palpation, uterine size normal, bladder normal to palpation, consistency normal, normal palpation, uterine mobility normal, uterine shape normal, No Cervical tenderness present, non-tender and no cervical motion tenderness Bimanual Exam- Adnexa, other: normal adnexae, no masses, normal and No adnexal tenderness Neuro General: patient oriented x3 Results AMB Test Urine AMB Test Urine Negative Last Edit by Yvette Garcia CMA on 03/16/24 15:21 Results Reviewed Results Reviewed: Laboratory Last Values [facility]st Clinic Negative 03/16/24 15:20 Assessment & Plan Assessment & Plan (1) control counseling: Code(s): Z30.09 - Encounter for other general counseling and advice on contraception Category: Medical (2) Cervical cancer screening: Comment: pap neg 2018, pap done 09/25/21= inadequate, repeated 03/04/22= neg w- trich,(- treated, tanya 04/26/22) Code(s): Z12.4 - Encounter for screening for malignant neoplasm of cervix Category: Medical (3) Potential exposure to STD: Code(s): Z20.2 - Contact with and (suspected) exposure to infections with a predominantly sexual mode of transmission Category: Medical (4) Well woman exam with routine gynecological exam: Code(s): Z01.419 - Encounter for gynecological examination (general) (routine) without abnormal findings Category: Medical (5) Breakthrough bleeding on Depo-Provera: Comment: History explored in detail patient went from Nexplanon removal. She did have some bleeding the Nexplanon. Then to Depo-Provera then skipped Depo-Provera for 6 months then resumed Depo-Provera and has had some spotting since repeat hCG negative today discussed the bleeding may take some time to dissipate completely, given the off again on again use of hormonal contraception... Code(s): N92.1 - Excessive and frequent menstruation with irregular cycle Category: Medical Plan -----Discussed in this visit the following: healthy balanced diet, regular and consistent exercise, getting recommended health screens, doing the best she can for her particular health concerns, kegel exercises, pap smear screening and followup recommendations, mammography screening and SBE, normal changes in cycles in her life stage--- . The majority of this visit was spent trying to figure out patient's history of breakthrough bleeding. She did not remember having missed several months of the Depo-Provera and only thought that she had just gotten her 2nd 1 this year recently in fact she started on the Depo the day the Nexplanon was removed last February of 2023 receive the 2nd dose at the appropriate time then skipped Depo Provera for 6 months then resumed it after a visit in September and has come since at the appropriate times for repeat Depo-Provera is. She has been recently having irregular spotting and cramping when she gets the spotting and additionally when she has sex sometimes she spots discussed that this may be related to the irregular use of the Depo-Provera stopping and starting and that the lining of her uterus may have started buildup and therefore when she has orgasm there is uterine contractile activity that tries to eat mid any blood that is in there. This may take some time to work out but there isn't really another way to deal with it as she likes the Depo and wants to stay on it. She says she has an appointment for the next Depo and will double check it at the front line leader. She has not due for Pap smear today baby did testing for STIs. Also discussed weight management issues. She says she and her sister are going to the gym. Orders: Orders CT NG by PCR Today N89.8 - Other specified noninflammatory disorders of vagina, Z11.3 - Encounter for screening for infections with a predominantly sexual mode of transmission AMB HCG Urine Test Today Z32.02 - Encounter for test, result negative Bacterial Vaginosis Panel Today N89.8 - Other specified noninflammatory disorders of vagina Medications: Refilled medroxyprogesterone (Depo-Provera) to be given in office before any upi and while on menses 150 mg IM Q12W 1 mL 4RF Coding Level of Care Code Est Pt Prev Care 40-64y(76598) Diagnoses control counseling Z30.09 Cervical cancer screening Z12.4 Potential exposure to STD Z20.2 Well woman exam with routine gynecological exam Z01.419 Breakthrough bleeding on Depo-Provera N92.1
== END 2024-03-16 15:22 | disposition home or self-care (01) ==
LOC: HO.HWSM 13:46
PROVIDERS: Visit Provider Advanced Practice Midwife
DX: Z01.419 Encounter for gynecological examination (general) (routine) without abnormal findings (principal); Z30.09 Encounter for other general counseling and advice on contraception; Z12.4 Encounter for screening for malignant neoplasm of cervix; Z20.2 Contact with and (suspected) exposure to infections with a predominantly sexual mode of transmission; N92.1 Excessive and frequent menstruation with irregular cycle; Z32.02 Encounter for pregnancy test, result negative
CPT/HCPCS: 99395

== ENCOUNTER 2024-05-31 13:44 | Outpatient (AMB) | payer OTHER, SELFPAY ==
--- NOTE | 2024-05-31 14:15 | AM.OFFVISNUR ---
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 No c/o, no new medical problems and no new meds. Pt tolerated injection well. She will return in 12 weeks for her next injection. Pt verbalizes understanding and agrees with plan. No further questions. Office Procedures Depo Questionnaire If YES to any of the following questions, please consult a provider. Date of last injection: 03/15/24 Date of last gynecology exam: 03/16/24 Menstrual pattern since last injection has been: Not Applicable Irregular bleeding?: No Breast lumps or other breast changes?: No Changes in weight or appetite?: No Depression or changes in mood?: No Abnormal hair growth or loss?: No Skin problems (rash, acne, discoloration)?: No Pain at the injection site?: No Headaches?: No Nervousness?: No Abdominal pain or cramping?: No Dizziness or nausea?: No Fatigue or weakness?: No Decrease in sexual drive?: No Chest pain or shortness of breath?: No Swelling in arms or legs?: No Form completed by?: Jessica Alan RN Office Meds Depo-Provera 150 mg/mL intramuscular syringe Performing Provider: Lizeth Charlton CNM Performing Location[place] [facility] [place] [facility] Administered by: Jessica Alan on 05/31/24 14:21 Dose Route Admin Location Dispensed Lot Number Expiration Date [facility] Cot Assembler 150 mg IM left deltoid 1 mL [id number] 08/21/26 15607-721-08 [facility] Assessment & Plan Assessment & Plan (1) Encounter for management and injection of depo-Provera: Code(s): Z30.42 - Encounter for surveillance of injectable contraceptive Category: Medical Orders: Orders AMB Medroxyprogesterone Injection Patient Supplied Today Z30.42 - Encounter for surveillance of injectable contraceptive Medications: New Depo-Provera (medroxyprogesterone) 150 mg IM ONCE 1 mL 0RF NS Z30.42 - Encounter for surveillance of injectable contraceptive Patient Instructions: Pt will schedule next Depo injection in 12 weeks
[2024-05-31 14:16] VITALS: BMI 35.4
== END 2024-05-31 16:23 | disposition home or self-care (01) ==
LOC: HO.HWS 13:44
PROVIDERS: Visit Provider Advanced Practice Midwife
DX: Z30.42 Encounter for surveillance of injectable contraceptive (principal)

== ENCOUNTER → 2024-05-31 13:44 | Outpatient (BNVA) | payer OTHER, SELFPAY | PROVIDERS: Visit Provider Advanced Practice Midwife | DX: Z30.42 Encounter for surveillance of injectable contraceptive (principal) | CPT/HCPCS: 96372; 99211; J1050 ==

== ENCOUNTER 2024-08-23 10:48 | Outpatient (AMB) | payer OTHER, SELFPAY ==
[2024-08-23 11:21] VITALS: BMI 34.9
--- NOTE | 2024-08-23 11:21 | AM.OFFVISNUR ---
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 No c/o. No menses, pt has lost 3 lbs since her last injection. Pt tolerated injection well. She will schedule her next injection in 12 weeks. Pt verbalizes understanding and agrees with plan. No further quesitons. Office Procedures Depo Questionnaire If YES to any of the following questions, please consult a provider. Date of last injection: 05/31/24 Date of last gynecology exam: 03/16/24 Menstrual pattern since last injection has been: Not Applicable Irregular bleeding?: No Breast lumps or other breast changes?: No Changes in weight or appetite?: Yes Depression or changes in mood?: No Abnormal hair growth or loss?: No Skin problems (rash, acne, discoloration)?: No Pain at the injection site?: No Headaches?: No Nervousness?: No Abdominal pain or cramping?: No Dizziness or nausea?: No Fatigue or weakness?: No Decrease in sexual drive?: No Chest pain or shortness of breath?: No Swelling in arms or legs?: No Form completed by?: Jessica Alan RN Office Meds Depo-Provera 150 mg/mL intramuscular syringe Performing Provider: Lizeth Charlton CNM Performing Location: [facility] [place] [facility] Administered by: Jessica Alan on 08/23/24 11:25 Dose Route Admin Location Dispensed Lot Number Expiration Date [facility] Pump Erector 150 mg IM LGM 1 mL [id number] 09/21/26 08540-920-35 [facility] Assessment & Plan Assessment & Plan Orders: Orders AMB Medroxyprogesterone Injection Patient Supplied Today Z30.42 - Encounter for surveillance of injectable contraceptive Medications: New Depo-Provera (medroxyprogesterone) 150 mg IM ONCE 1 mL 0RF NS Z30.42 - Encounter for surveillance of injectable contraceptive Patient Instructions: Schedule next injection in 12 weeks.
== END 2024-08-23 11:15 | disposition home or self-care (01) ==
PROVIDERS: Visit Provider Advanced Practice Midwife
DX: Z30.42 Encounter for surveillance of injectable contraceptive (principal)

== ENCOUNTER → 2024-08-23 10:48 | Outpatient (BNVA) | payer OTHER, SELFPAY | PROVIDERS: Visit Provider Advanced Practice Midwife | DX: Z30.42 Encounter for surveillance of injectable contraceptive (principal) | CPT/HCPCS: 96372; 99211; J1050 ==

== ENCOUNTER 2024-11-09 08:40 | Outpatient (AMB) | payer OTHER, SELFPAY ==
--- NOTE | 2024-11-09 08:49 | AM.OFFVISNUR ---
Vital Signs 11/09/24 08:50 Height 5 ft 5 in Weight 219 lb BMI 36.4 Intake Visit Reasons: depo Allergies No Known Allergies Allergy (Verified 03/16/24 14:10) Nursing Note Lesly is here today for her scheduled Depo-Provera inj. She had a 9 lb weight gain but also had her boots on. She denies any problems or concerns. Next AG in 02/2025. Follow up next inj in 12 weeks. Office Procedures Depo Questionnaire If YES to any of the following questions, please consult a provider. Date of last injection: 08/23/24 Date of last menstrual period: 10/18/24 Date of last gynecology exam: 03/16/24 Menstrual pattern since last injection has been: Light Irregular bleeding?: No Breast lumps or other breast changes?: No Changes in weight or appetite?: Yes (gain of 9 lbs, pt had boots on also) Depression or changes in mood?: No Abnormal hair growth or loss?: No Skin problems (rash, acne, discoloration)?: No Pain at the injection site?: No Headaches?: No Nervousness?: No Abdominal pain or cramping?: No Dizziness or nausea?: No Fatigue or weakness?: No Decrease in sexual drive?: No Chest pain or shortness of breath?: No Swelling in arms or legs?: No Form completed by?: Robel Bolivar LPN Office Meds Depo-Provera 150 mg/mL intramuscular syringe Performing Provider: Lizeth Charlton CNM Performing Location: [facility] [place] [facility] Administered by: Rebecca Bolivar LPN on 11/09/24 08:50 Dose Route Admin Location Dispensed Lot Number Expiration Date [facility] Multifocal Button Grinder 150 mg IM left deltoid 1 mL [id number] 01/19/27 40253-084-49 [facility] Assessment & Plan Assessment & Plan Orders: Orders AMB Medroxyprogesterone Injection Patient Supplied Today Z30.42 - Encounter for surveillance of injectable contraceptive Medications: New Depo-Provera (medroxyprogesterone) 150 mg IM ONCE 1 mL 0RF NS Z30.42 - Encounter for surveillance of injectable contraceptive Coding Level of Care Code Established Pt Est Pt Level 1 (49520) Patient Type Established History Problem Focused Exam Problem Focused Medical Decision Making Straight Forward Time Spent (min) 20
[2024-11-09 08:50] VITALS: BMI 36.4
--- OUTSIDE RECORDS SUMMARY | 2024-11-09 09:08 | XMS_ITS | Data Portability ---
Author Organization [facility] [employer], [id number] Address [address] [place] [address] Assessment No assessment recorded. Plan of Treatment Reminders Order Date Submit Date Provider Last Modified By Organization Details Last Modified Time Details Appointments None record ed. Lab None record ed. Referral None record ed. Procedures None record ed. Surgeries None record ed. Imaging None record ed. Medication Orders None record ed. Patient TargetsNo targets recorded. Patient InstructionsNo instructions recorded. Reason for Referral None Reported. Procedures Surgical History Date Name Laterality Status Provider Name and Address Organization Details Recorded Time OC-UDS Send Out Template NON DOT completed Mariya Cabello [employer] 06/18/2024 15:55:20 Imaging Results None recorded. Procedure Notes None recorded. Medical Equipment None Reported. Medications Name Sig Start Date Stop Date Status Note LastModified by Organization Details LastModified Time trazodone 100 mg tablet TAKE 1 TABLET BY MOUTH EVERYDAY AT BEDTIME active Not Available Not Available No t Available medroxyproge sterone 150 mg/mL intramuscula r suspension INJECT 150 MG INTRAMUSCUL BRIANNA EVERY 12 WEEKS TO BE GIVEN IN OFFICE BEFORE ANY UPI AND ON MENSES active Not Available Not Available No t Available amoxicillin 875 mg-potassium clavulanate 125 mg tablet TAKE 1 TABLET BY MOUTH EVERY 12 HOURS active Not Available Not Available No t Available paroxetine ER 25 mg tablet,exten ded release 24 hr TAKE 1 TABLET BY MOUTH EVERYDAY AT BEDTIME active Not Available Not Available No t Available guanfacine ER 2 mg tablet,exten ded release 24 hr TAKE 1 TABLET BY MOUTH EVERY DAY IN THE MORNING active Not Available Not Available No t Available guanfacine ER 3 mg tablet,exten ded release 24 hr TAKE 1 TABLET BY MOUTH EVERY DAY IN THE MORNING active Not Available Not Available No t Available Vitals None Recorded Social History None recorded. Functional Status None recorded. Mental Status None recorded. Family History Nothing Reported. Medical History No medical history recorded. Gynecological HistoryNo gynecological history recorded. Obstetrics History GPAL:G 0 P 0 0 0 0 Past Encounters Encounter ID Performer Location Encounter Start Date Encounter Closed Date Diagnosis/Indication Diagnosis SNOMED-CT Code Diagnosis ICD10 Code Diagnosis Note [id number] [address] [place] [address] 06/24/2021 12:16:25 06/24/2021 14:13:08 [id number] [place] [address] [address] 06/18/2024 13:38:59 06/18/2024 15:58:24 History and physical examination, occupation [id number] Z02.1 Health Concerns Section Related Observation LastModified by Organization Detai ls LastModified Time None Recorded Concern Status LastModified by Organization Details LastModified Time None Recorded Advance Directives Directive None Recorded Payers Encounter Date Sequence Insurance Name Policy Number Policy Basilio Covered Member ID Basilio Member ID Guarantor Name 06/24/2021 1 [facility] - [facility] (MEDICAID REPLACEMENT - HMO) FELIPE Thompson [id number] Lesly Thompson 06/18/2024 [facility] [id number] Lesly Thompson OBGyn Episode No OBEpisode recorded.
== END 2024-11-09 08:50 | disposition home or self-care (01) ==
LOC: HO.HWS 08:40
PROVIDERS: Visit Provider Advanced Practice Midwife
DX: Z30.42 Encounter for surveillance of injectable contraceptive (principal)

== ENCOUNTER → 2024-11-09 08:40 | Outpatient (BNVA) | payer OTHER, SELFPAY | PROVIDERS: Visit Provider Advanced Practice Midwife | DX: Z30.42 Encounter for surveillance of injectable contraceptive (principal) | CPT/HCPCS: 96372; 99211; J1050 ==

== ENCOUNTER 2025-01-25 08:52 | Outpatient (AMB) | payer OTHER, SELFPAY ==
[2025-01-25 09:09] VITALS: BMI 37.0
--- NOTE | 2025-01-25 09:09 | AM.OFFVISNUR ---
Vital Signs 01/25/25 09:09 Height 5 ft 5 in Weight 222 lb 6 oz BMI 37.0 Intake Visit Reasons: depo Allergies No Known Allergies Allergy (Verified 03/16/24 14:10) Nursing Note Lesly is her today for her scheduled Depo-Provera inj. She denies any problems or concerns. AG is scheduled for 03/21 25 with Lizeth Charlton. Follow up in 12 wks for next inj. Office Procedures Depo Questionnaire If YES to any of the following questions, please consult a provider. Date of last injection: 11/09/24 Date of last gynecology exam: 03/16/24 Menstrual pattern since last injection has been: Not Applicable Irregular bleeding?: No Breast lumps or other breast changes?: No Changes in weight or appetite?: No Depression or changes in mood?: No Abnormal hair growth or loss?: No Skin problems (rash, acne, discoloration)?: No Pain at the injection site?: No Headaches?: No Nervousness?: No Abdominal pain or cramping?: No Dizziness or nausea?: No Fatigue or weakness?: No Decrease in sexual drive?: No Chest pain or shortness of breath?: No Swelling in arms or legs?: No Form completed by?: Robel Bolivar LPN Office Meds Depo-Provera 150 mg/mL intramuscular syringe Performing Provider: Lizeth Charlton CNM [place] [facility] [place] [facility] Administered by: Rebecca Bolivar LPN on 01/25/25 09:09 Dose Route Admin Location Dispensed Lot Number Expiration Date [facility] Linseed Oil Press Tender 150 mg IM left deltoid 1 mL [id number] 01/19/27 33732-697-70 [facility] Assessment & Plan Assessment & Plan Orders: Orders AMB Medroxyprogesterone Injection Patient Supplied Today Z30.42 - Encounter for surveillance of injectable contraceptive Medications: New Depo-Provera (medroxyprogesterone) 150 mg IM ONCE 1 mL 0RF NS Z30.42 - Encounter for surveillance of injectable contraceptive Coding Level of Care Code Established Pt Est Pt Level 1 (73720) Patient Type Established History Problem Focused Exam Problem Focused Medical Decision Making Straight Forward Time Spent (min) 20
--- OUTSIDE RECORDS SUMMARY | 2025-01-25 09:25 | XMS_ITS | Encounter Summary ---
Author Organization [facility] Address [address] [place], [place] [address] Phone Care Team Providers Care Manager Mobile Name Role Phone Gracie Swartz MD Primary Care Provider [phone] Encounter Details Date Type Department Care Team (Late st Contact Info) Description 05/08/2017 Conversion Encounter [facility] [place] [address] [place] [address] Social History Tobacco Use Types Packs/Day Years Used Date Smoking Tobacco: Never Comments:Never smoker Comments Unknown Sex and Gender Information Value Date Recorded Sex Assigned at Not on file Legal Sex Female 5:23 PM EDT Gender Identity Not on file Sexual Orientation Not on file documented as of this encounter Plan of Treatment Not on file documented as of this encounter Visit Diagnoses Not on filedocumented in this encounter Care Teams Manager Mobile Relationship Specialty Start Date End Date Gracie Swartz MD [address] [place] [address] PCP - General 05/02/17 11/20/22 documented as of this encounter
--- OUTSIDE RECORDS SUMMARY | 2025-01-25 09:26 | XMS_ITS | Data Portability ---
Author Organization [facility] [employer] [facility], [address] Address [address] [place] [address] Assessment No assessment recorded. Plan of Treatment [...] Out Template NON DOT completed Mariya [employer] 06/18/2024 15:55:20 Imaging Results None recorded. Procedure [...] SNOMED-CT Code Diagnosis ICD10 Code Diagnosis Note [id number] _[facility] _[facility] [address] [place] [address] 06/24/2021 12:16:25 06/24/2021 14:13:08 [id number] Dilshad Baker DO [address] [facility] [address] [place] [address] 06/18/2024 13:38:59 06/18/2024 15:58:24 History and physical examination, occupation [id number] Z02.1 Health Concerns Section Related Observation LastModified by Organization Detai ls LastModified Time None Recorded Concern Status LastModified by Organization Details LastModified Time None Recorded Advance Directives Directive None Recorded Payers Encounter Date Sequence Insurance Name Policy Number Policy Basilio Covered Member ID Basilio Member ID Guarantor Name 06/24/2021 1 [facility] (MEDICAID REPLACEMENT - HMO) FELIPE Thompson [id number] Lesly Thompson 06/18/2024 OC-ESCREEN [facility] [id number] Lesly Thompson OBGyn Episode No OBEpisode recorded.
--- OUTSIDE RECORDS SUMMARY | 2025-01-25 09:26 | XMS_ITS | Clinical Summary ---
Author Organization [employer] Address [address] [facility] [address] [place] [address] Care Team Providers Care Fountain Server Name Role Phone Unavailable Primary Care Provider Unavailabl e Social History Tobacco Use Types Packs/Day Years Used Date Smoking Tobacco: Never Assessed Comments Unknown Sex and Gender Information Value Date Recorded Sex Assigned at Female 07/22/2022 10:35 AM EDT Legal Sex Female 10:35 AM EDT Gender Identity Female 07/22/2022 10:35 AM EDT Sexual Orientation Straight 07/22/2022 10 :35 AM EDT Last Filed Vital Signs Vital Sign Reading Time Taken Comments Blood Pressure 98/60 09/20/2019 12:12 AM EST Pulse 78 09/20/2019 12:12 AM EST Temperature - - Respiratory Rate - - Oxygen Saturation - - Inhaled Oxygen Concentration - - Weight - - Height - - Body Mass Index - - Plan of Treatment Health Maintenance Due Date Last Done Comments Depression Screening 1997 Alcohol/Substance Use Screening 2009 Tobacco Screening 2009 Family Planning (PISQ) 2012 DTaP/Tdap/Td Vaccines (1 - Tdap) 2016 Hepatitis B Vaccines (1 of 3 - 19+ 3-dose series) 2016 Pap Smear 2018 COVID-19 Vaccine ( - 2023-2 5 season) 2024 Influenza Vaccine (#1) 2024 Zoster Vaccines (1 of 2) 2047 RSV Patients and Pa tients Aged 60 years or older (1 - 1-dose 75+ series) 2072 HIB Vaccines Aged Out No longer eligi ble based on patient's age to complete this topic HPV Vaccines Aged Out No longer eligi ble based on patient's age to complete this topic Hepatitis A Vaccines Aged Out No long er eligible based on patient's age to complete this topic IPV Vaccines Aged Out No longer eligi ble based on patient's age to complete this topic Meningococcal Vaccine Aged Out No shanika apryl eligible based on patient's age to complete this topic Pneumococcal Vaccine: Pediat rics (0 to 5 Years) and At-Risk Patients (6 to 49) Years) Aged Out No longer eligible b ased on patient's age to complete this topic RSV under 20 months Aged Out No longe r eligible based on patient's age to complete this topic Rotavirus Vaccines Aged Out No longer eligible based on patient's age to complete this topic
--- OUTSIDE RECORDS SUMMARY | 2025-01-25 09:26 | XMS_ITS | Encounter Summary ---
Author Organization [facility] Address [address] [place] [address] Phone Care Team Providers Care Luncheonette Manager Name Role Phone Gracie Swartz MD Primary Care Provider [phone] Encounter Details Date Type Department Care Team (Late st Contact Info) Description 07/03/2011 Documentation [facility] [place] [address] [place] [address] Family Medicine, Physician [address] [place] [address] Social History Tobacco Use Types Packs/Day Years [...] on filedocumented in this encounter Care Teams Luncheonette Manager Relationship Specialty Start Date End Date Gracie Swartz MD [address] [place] [address] REYN[place] Conner [address] PCP - General 05/02/17 11/20/22 documented as of this encounter
--- OUTSIDE RECORDS SUMMARY | 2025-01-25 09:26 | XMS_ITS | Encounter Summary ---
Author Organization [facility] Address [address] [place] [address] Phone Care Team Providers Care Cannoneer Name Role Phone Gracie Swartz MD Primary Care Provider [phone] Encounter Details Date Type Department Care Team (Late st Contact Info) Description 06/18/2011 Documentation [facility] [place] Family Medicine [address] [place] [address] Family Medicine, Physician [address] [place] [address] Social History Tobacco Use Types Packs/Day Years [...] on filedocumented in this encounter Care Teams Cannoneer Relationship Specialty Start Date End Date Gracie Swartz MD [address] [place] [address] [place] [address] PCP - General 05/02/17 11/20/22 documented as of this encounter
--- OUTSIDE RECORDS SUMMARY | 2025-01-25 09:26 | XMS_ITS | Clinical Summary ---
Author Organization [facility] Address [address] [place] [address] Phone Care Team Providers Care Machine Wiper Name Role Phone Unavailable Primary Care Provider Unavailabl e Allergies No known active allergies Medications medroxyPROGESTERon e 150 MG/ML injection TAKE TO DOCTOR'S OFFICE FOR ADMINISTRATION EVERY 3 MONTHS. 4 10/13/19 18 Active loratadine (CLARITIN) 10 MG tabletIndications: Allergic conjunctivitis of both eyes Take 1 tablet (10 mg total) by mouth daily. 30 tablet 1 12/02/19 18 Active ibuprofen 200 MG tablet TAKE 3 TABLETS BY MOUTH EVERY 6 HOURS NEEDED FOR PAIN OR FEVER 0 12/10/19 18 Active Active Problems Problem Noted Date Diagnosed Date Mild intermittent asthma without complication Overview (12/01/2017): used albuterol & flovent when younger. No issues in years till needed albuterol in 2016 for a persistent cough Assessment & Plan (01/05/2019 3:10 PM EDT): No issues in years Assessment & Plan (01/01/2018 8:14 AM EDT): No need for albuterol in > 1 year Has inhaler at home to have just in case Anemia 12/21/2016 Overview (01/01/2018): Microcytic. Started on Fe 325 mg BID 12/21/16. Needed Fe for anemia in 2013. Poor diet. No blood in stool or heavy menses. Started Depo 01/01/17 & last HgB 11/2017 was 11.7 Assessment & Plan (01/05/2019 3:10 PM EDT): Will check CBC today Assessment & Plan (01/01/2018 7:36 AM EDT): Last year needed Fe for HgB 9. 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 Discharged from Endo in 2013. Needs yearly TFTs. Refer back if becomes hypothyroid Assessment & Plan (01/05/2019 3:10 PM EDT): Needs TFTs yearly Off meds No longer seeing Endo since no need for meds Assessment & Plan (01/01/2018 7:33 AM EDT): Needs yearly TFTs Immunizations Immunization Administration Dates Next Due DTP 11/29/1998, 8,1997,08/31 DTaP 5 09/01/2001 HPV, Quadrivalent 07/06/2009,03/03/2009,12/30/19 09 Hep A, ped/adol 12/12/2015,12/01/2014 Hep B, ped/adol 02/23/1998,1997,1997 Hib (PRP-T) 08/31/1998, 8,1997,08/31 IPV 09/01/2001 Influenza, injectable, quadrivalent 12/01/2014 Influenza, injectable, quadr ivalent, preservative free 07/25/2018,01/01/2018,12/19/2016,11/03 Influenza, injectable, trivalent 003,07/29/2002,09/01/2001,09/25,08/25/2000 MMR 01/26/2003,09/01/2001,06/09/1998 Meningococcal Conj (Menactra) MCV4P 12/01/2014,0 12/29/2008 OPV 1997,1997,1997 Pneumococcal Conjugate 08/25/2000 Td (adult) (Tenivac), 5 Lf t etanus toxoid, PF, adsorbed 01/05/2019 Tdap 12/29/2008 Family History Medical History Relation Name Comments Asthma Brother Alcoholism Maternal Grandfather Migraines Mother Relation Name Status Comments Brother Father Alive Father: Alive a nd well Maternal Grandfather Materna l grandfather: ETOH, Maternal Grandmother Materna l grandmother: Hyperlipidemia, Hypertension, Diabetes mellitus, Asthma Mother Alive Mother: Migrain es Other No family histo ry of Migraines, No family history of Seizure disorder, Family history of Diabetes mellitus, Family history of Obesity, No family history of ADD/ADHD, No family history of Hyperlipidemia, No family history of *Thrombophilia, No family history of *CVA/Stroke, No family history of Deafness, No family history of Developmental dislocation of hip, No family history of Cancer, No family history of *Heart Disease, Family history of Asthma, No family history of Strabismus, No family history of *Sudden /HI under 55 Sister Alive Sister: Asthma Social History Tobacco Use Types Packs/Day Years Used Date Smoking Tobacco: Never Smokeless Tobacco: Never Comments:Never smoker Alcohol Use Standard Drinks/Week Comments Yes 0 (1 standard drink = 0.6 oz pur e alcohol) Occas Hunger/Food Answer Date Recorded No 01/05/2019 Stable Housing Answer Date Recorded 0 01/05/2019 Transportation Concerns Answer Date Rec orded No 01/05/2019 Hazards in Home Answer Date Recorded No 01/05/2019 Financing Utilities Answer Date Recorde d No 01/05/2019 Safety at Home Answer Date Recorded No 01/05/2019 Outside Support Answer Date Recorded No 01/05/2019 Understanding Health Concerns Answer Da te Recorded No 01/05/2019 Financing Health Concerns Answer Date R ecorded No 01/05/2019 Missing School or Work Answer Date Johnathan rded No 01/05/2019 Comments No Sex and Gender Information Value Date Recorded Sex Assigned at Not on file Legal Sex Female 5:23 PM EDT Gender Identity Not on file Sexual Orientation Not on file Last Filed Vital Signs Vital Sign Reading Time Taken Comments Blood Pressure 112/65 01/05/2019 2:48 PM EDT Pulse 80 01/05/2019 2:48 PM EDT Temperature 36.8 ??C (98.2 ??F) 01/05/2019 2:48 PM ED T Respiratory Rate - - Oxygen Saturation - - Inhaled Oxygen Concentration - - Weight 70.2 kg (154 lb 12.8 oz) 01/05/2019 2:48 PM EDT Height 162.6 cm (5' 4 ) 01/05/2019 2:48 PM EDT Body Mass Index 26.57 01/05/2019 2:48 PM EDT Plan of Treatment Health Maintenance Due Date Last Done Comments Influenza Vaccines (#1) 2024 07/25/20 18, 01/01/2018, 12/19/2016, Additional history exists COVID-19 Vaccine (2023- season) 2024 DTaP,Tdap,and Td Vaccines (8 - Td or Tdap) 01/05/2029 01/05/2019, 12/29/2008, 09/01/2001, Additional history exists Hepatitis B Vaccines Completed 02/23/1998, 1997, 1997 HIB Vaccines Completed 08/31/1998, 05/1998, 1997, Additional history exists Pneumococcal Vaccine Completed 08/25/2000 IPV Vaccines Completed 09/01/2001, 05/1998, 1997, Additional history exists MMR Vaccines Completed 01/26/2003, 08/22, 06/09/1998 HPV Vaccines Completed 07/06/2009, 02/20, 12/29/2008 Meningococcal Vaccine Completed 12/01/2014, 009 Hepatitis A Vaccines Completed 12/12/2015, 12/02/19 15 Men B Vaccine Aged Out No longer elig ible based on patient's age to complete this topic Procedures * Due to [place] law, this organization might not be sharing sensitive test results. Procedure Name Priority Date/Time Associated Diagnosis Comments CHLAMYDIA AND GONORRHEA, AMPLIFIED Routine 01/05/2019 3:01 PM EDT Screening examination for bacterial and spirochetal disease from Last 3 Months or Most Recently Relevant to Health Maintenance Results * Due to [place] law, this organization might not be sharing sensitive test results. * Chlamydia and Gonorrhoea, Amplified (01/05/2019 3:01 PM EDT) Chlamydia Trachomatis, DNA Probe NEGATIVE (NEG) [facility] Comment: No Chlamydia Trachomatis RNA detected in this patient's sample ? (REFERENCE RANGE/NORMAL VALUE: NOT DETECTED) ? Note: This test uses supervisor education- mediated amplification method to detect rRNA from C. Trachomatis URINE GC AMP PROBE NEGATIVE (NEG) [facility] Comment: No Neisseria Gonorrhoeae RNA detected in this patient's sample ? (REFERENCE RANGE/NORMAL VALUE: NOT DETECTED) ? NOTE: This test uses supervisor education-mediated amplification method to detect rRNA from N.Gonorrhoeae. A negative result does not preclude infection. In the case of a negative urine result, testing of an endocervical(female) or urethral (male) specimen is recommended if there is high clinical suspicion of infection. Due to very high sensitivity of Nucleic Acid Amplification Test, false positive results may occur. Therefore, specimen handling is extremely important. In patients in whom the disease is unlikely, additional sample for testing should be considered after an initial positive result. The performance characteristics of this test have not been evaluated in children. The Aptima Combo2 assay is not intended for the evaluation of suspected sexual abuse or for other medico-legal indications. The ordering provider should assess if the patient had consensual sex without risk of sexual abuse. Consult the [facility] if needed. Contact phone number . Therapeutic failure or success cannot be determined with the Aptima Combo2 assay since nucleic acid may persist following appropriate antimicrobial therapy. The Centers for Disease Control and Prevention (CDC) recommends confirmatory retesting using culture or a different nucleic acid amplification test when positive results occur, if indicated. Testing performed or reported by [facility], a Service of [facility], [address], [place] [address] Urine 01/05/2019 3:01 PM EDT 01/05/2019 9:13 PM EDT us Gracie Swartz MD LAB MICROBIOLOGY - GENERAL ORDER ALCIRA Final Result [facility] from Last 3 Months or Most Recently Relevant to Health Maintenance
--- OUTSIDE RECORDS SUMMARY | 2025-01-25 09:26 | XMS_ITS | Encounter Summary ---
Author Organization [employer] Address [address] [place] [address] 7 [place] [address] Care Team Providers Care Fisheries Technical Officer Name Role Phone Eric Trivedi MD Primary Care Prov ider Encounter Details Date Type Department Care Team (Latest Contact Info) Description 01/11/2019 Abstract [facility] CONVERSIONS Dental, Provider, DDS Social History Tobacco Use Types Packs/Day Years Used Date Smoking Tobacco: Never Assessed Comments Unknown Sex and Gender Information Value Date Recorded Sex Assigned at Female 07/22/2022 10:35 AM EDT Legal Sex Female 10:35 AM EDT Gender Identity Female 07/22/2022 10:35 AM EDT Sexual Orientation Straight 07/22/2022 10 :35 AM EDT documented as of this encounter Plan of Treatment Not on file documented as of this encounter Visit Diagnoses Not on filedocumented in this encounter Care Teams Fisheries Technical Officer Relationship Specialty Start Date End Date Eric Trivedi MD [address] [place] [address] PCP - General Internal Medicine 08/17/19 09/25/23 documented as of this encounter
--- OUTSIDE RECORDS SUMMARY | 2025-01-25 09:26 | XMS_ITS | Encounter Summary ---
Author Organization [facility] Address [address] [place] [address] Phone Care Team Providers Care Beamster Name Role Phone Gracie Swartz MD Primary Care Provider Encounter Details Date Type Department Care Team (Late st Contact Info) Description 06/07/2011 Documentation [facility] [place] [address] [place] [address] Family Medicine, Physician [address] [place] [address] Social History Tobacco Use Types Packs/Day Years [...] on filedocumented in this encounter Care Teams Beamster Relationship Specialty Start Date End Date Gracie Swartz MD [address] [place] [address] [place] [address] PCP - General 05/02/17 11/20/22 documented as of this encounter
== END 2025-01-25 09:13 | disposition home or self-care (01) ==
LOC: HO.HWS 08:52
PROVIDERS: Visit Provider Advanced Practice Midwife
DX: Z30.42 Encounter for surveillance of injectable contraceptive (principal)

== ENCOUNTER → 2025-01-25 08:52 | Outpatient (BNVA) | payer OTHER, SELFPAY | PROVIDERS: Visit Provider Advanced Practice Midwife | DX: Z30.42 Encounter for surveillance of injectable contraceptive (principal) | CPT/HCPCS: 96372; 99211; J1050 ==

== ENCOUNTER 2025-04-19 08:46 | Outpatient (AMB) | payer OTHER, SELFPAY ==
--- OUTSIDE RECORDS SUMMARY | 2025-04-19 09:01 | XMS_ITS | Clinical Summary ---
Author Organization [employer] Address [address] [place] [address] 7t [place] [address] Care Team Providers Care Equipment Hire Manager Name Role Phone Unavailable Primary Care Provider [...] Date Last Done Comments Depression Screening 1997 Disability Screening 1997 Alcohol/Substance Use Screening 2009 Tobacco Screening 2009 Family Planning (PISQ) 2012 HPV Vaccines (1 - 3-dose series) 2012 DTaP/Tdap/Td Vaccines (1 - Tdap) 2016 Hepatitis B Vaccines (1 of 3 - 19+ 3-dose series) 2016 Pap Smear 2018 COVID-19 Vaccine (1 - 2023-2 5 season) 2024 Influenza Vaccine (#1) 2025 Zoster Vaccines (1 of 2) 2047 RSV [...] patient's age to complete this topic Meningococcal B Vaccine Aged Out No l onger eligible based on patient's age to complete this topic Meningococcal Vaccine Aged Out No shanika apryl eligible based on patient's age to complete this topic Pneumococcal Vaccine: Pediat rics (0 to 5 Years) and At-Risk Patients (6 to 49) Years Aged Out No longer eligible b ased on patient's age to complete this topic RSV under 20 months Aged Out No longe r eligible based on patient's age to complete this topic Rotavirus Vaccines Aged Out No longer eligible based on patient's age to complete this topic
--- OUTSIDE RECORDS SUMMARY | 2025-04-19 09:02 | XMS_ITS | Data Portability ---
Author Organization [facility] [address] Address [address] [place] [address] Assessment No assessment recorded. Plan of Treatment [...] Send Out Template NON DOT completed Mariya [facility] 06/18/2024 15:55:20 Imaging Results None recorded. Procedure [...] SNOMED-CT Code Diagnosis ICD10 Code Diagnosis Note [id number] [facility] _[facility] [address] [place] [address] 06/24/2021 12:16:25 06/24/2021 14:13:08 [id number] Dilshad Baker DO [address] [facility] [address] [place] [address] 06/18/2024 13:38:59 06/18/2024 15:58:24 History and physical examination, occupation [id number] Z02.1 Health Concerns Section Related Observation LastModified by Organization Detai ls LastModified Time None Recorded Concern Status LastModified by Organization Details LastModified Time None Recorded Advance Directives Directive None Recorded Payers Insurance Date Sequence Insurance Name Policy Number Policy Basilio Covered Member ID Basilio Member ID Guarantor Name 06/18/2024 OC-ESCREEN Ves [id number] Lesly Thompson 06/18/2024 1 [facility] (MEDICAID [facility]PLAC[facility] [place] [facility] FELIPE Thompson [id number] Lesly Thompson OBGyn Episode No OBEpisode recorded.
[2025-04-19 10:14] VITALS: BMI 37.9
--- NOTE | 2025-04-19 10:14 | AM.OFFVISNUR ---
Vital Signs 04/19/25 10:14 Height 5 ft 5 in Weight 228 lb BMI 37.9 Intake Visit Reasons: DEPO Allergies No Known Allergies Allergy (Verified 03/16/24 14:10) Nursing Note Lesly is here today for her scheduled Depo-Provera inj no c/o . follow up in 12 wks. Office Procedures Depo Questionnaire If YES to any of the following questions, please consult a provider. Date of last injection: 02/25/25 Date of last gynecology exam: 03/16/24 Menstrual pattern since last injection has been: Not Applicable Irregular bleeding?: No Breast lumps or other breast changes?: No Changes in weight or appetite?: Yes (weight gain of 5 lbs.) Depression or changes in mood?: No Abnormal hair growth or loss?: No Skin problems (rash, acne, discoloration)?: No Pain at the injection site?: No Headaches?: Yes (pt has hx of headaches) Nervousness?: No Abdominal pain or cramping?: No Dizziness or nausea?: No Fatigue or weakness?: No Decrease in sexual drive?: No Chest pain or shortness of breath?: No Swelling in arms or legs?: No Form completed by?: Robel Bolivar LPN Office Meds Depo-Provera 150 mg/mL intramuscular syringe Performing Provider: Lizeth Charlton CNM [place] [facility] [place] [facility] Administered by: Rebecca Bolivar LPN on 04/19/25 10:16 Dose Route Admin Location Dispensed Lot Number Expiration Date [facility] Director Hris 150 mg IM rt. deltoid 1 mL [id number] 01/19/27 60471-593-29 Total Dispensed Waste 1 mL 0 % Assessment & Plan Assessment & Plan Orders: Orders AMB Medroxyprogesterone Injection Patient Supplied Today Z30.42 - Encounter for surveillance of injectable contraceptive Coding Level of Care Code Established Pt Est Pt Level 1 (84945) Patient Type Established History Problem Focused Exam Problem Focused Medical Decision Making Straight Forward Time Spent (min) 20
== END 2025-04-19 09:30 | disposition home or self-care (01) ==
LOC: HO.HWS 08:46
PROVIDERS: Visit Provider Advanced Practice Midwife
DX: Z30.42 Encounter for surveillance of injectable contraceptive (principal)

== ENCOUNTER → 2025-04-19 08:46 | Outpatient (BNVA) | payer OTHER, SELFPAY | PROVIDERS: Visit Provider Advanced Practice Midwife | DX: Z30.013 Encounter for initial prescription of injectable contraceptive (principal) | CPT/HCPCS: 96372; 99211; J1050 ==

== ENCOUNTER 2025-07-15 09:42 | Outpatient (AMB) | payer OTHER, SELFPAY ==
--- NOTE | 2025-07-15 09:55 | AM.OFFVISNUR ---
Vital Signs 07/15/25 09:59 Height 5 ft 5 in Weight 230 lb BMI 38.3 Intake Visit Reasons: depo Allergies No Known Allergies Allergy (Verified 03/16/24 14:10) Nursing Note Arrived on time for schedule Depo Provera Injection with medication. No complaints given. To schedule next injection in 12 weeks (Sep 30-) Office Procedures Depo Questionnaire If YES to any of the following questions, please consult a provider. Date of last injection: 04/19/25 Date of last gynecology exam: 04/19/25 Menstrual pattern since last injection has been: Not Applicable Irregular bleeding?: No Breast lumps or other breast changes?: No Changes in weight or appetite?: No Depression or changes in mood?: No Abnormal hair growth or loss?: No Skin problems (rash, acne, discoloration)?: No Pain at the injection site?: No Headaches?: No Nervousness?: No Abdominal pain or cramping?: No Dizziness or nausea?: No Fatigue or weakness?: No Decrease in sexual drive?: No Chest pain or shortness of breath?: No Swelling in arms or legs?: No Any other problems or concerns?: no concerns Form completed by?: Kristina Og Office Meds Depo-Provera 150 mg/mL intramuscular syringe Performing Provider: Lizeth Charlton CNM [place] [facility] [place] [facility] Administered by: Kristina Og LPN on 07/15/25 09:55 Dose Route Admin Location Dispensed Lot Number Expiration Date [facility] Enterprise Manager 150 mg IM L Deltoid 1 mL [id number] 08/21/27 83583-527-33 [facility] Total Dispensed Waste 1 mL 0 % Assessment & Plan Assessment & Plan Orders: Orders AMB Medroxyprogesterone Injection Patient Supplied Today Z30.42 - Encounter for surveillance of injectable contraceptive Coding Level of Care Code Established Pt Est Pt Level 1 (42422) Patient Type Established History Problem Focused Exam Problem Focused Medical Decision Making Straight Forward Time Spent (min) 20
[2025-07-15 09:59] VITALS: BMI 38.3
--- OUTSIDE RECORDS SUMMARY | 2025-07-15 10:47 | XMS_ITS | Encounter Summary ---
Author Organization [facility] Address [address] [place], [place] [id number] Phone Care Team Providers Care Personal Health Coach Name Role Phone Gracie Swartz MD Primary Care Provider Encounter Details Date Type Department Care Team (Late st Contact Info) Description 05/08/2017 Conversion Encounter [facility] [place] [address] [place] [address] Social History Tobacco Use Types Packs/Day Years [...] on filedocumented in this encounter Care Teams Personal Health Coach Relationship Specialty Start Date End Date Gracie Swartz MD [address] [place] [address] PCP - General 05/02/17 11/20/22 documented as of this encounter
--- OUTSIDE RECORDS SUMMARY | 2025-07-15 10:47 | XMS_ITS | Encounter Summary ---
Author Organization [facility] Address [address] [place] [address] Phone Care Team Providers Care Steam Oven Operator Name Role Phone Gracie Swartz MD Primary Care Provider [phone] Encounter Details Date Type Department Care Team (Late st Contact Info) Description 06/18/2011 Documentation [facility] [place] [facility] [address] [place] [address] Family Medicine, Physician [address] [place] [address] Social History Tobacco Use Types Packs/Day Years [...] on filedocumented in this encounter Care Teams Steam Oven Operator Relationship Specialty Start Date End Date Gracie Swartz MD [address] [place] [address] [place] [address] PCP - General 05/02/17 11/20/22 documented as of this encounter
--- OUTSIDE RECORDS SUMMARY | 2025-07-15 10:47 | XMS_ITS | Encounter Summary ---
Author Organization [facility] Address [address] [place] [address] Phone Care Team Providers Care Autocad Draftsman Name Role Phone Gracie Swartz MD Primary Care Provider [phone] Encounter Details Date Type Department Care Team (Late st Contact Info) Description 06/07/2011 Documentation [facility] [place] Medicine [address] [place] [address] Family Medicine, Physician [address] [place] [address] Social History Tobacco Use Types Packs/Day Years [...] on filedocumented in this encounter Care Teams Autocad Draftsman Relationship Specialty Start Date End Date Gracie Swartz MD [address] [place] [address] [place] [address] PCP - General 05/02/17 11/20/22 documented as of this encounter
--- OUTSIDE RECORDS SUMMARY | 2025-07-15 10:47 | XMS_ITS | Clinical Summary ---
Author Organization [employer] Address [address] [place] [address] [address] [place] [address] Care Team Providers Care Mmi Teacher Name Role Phone Unavailable Primary Care Provider [...] COVID-19 Vaccine (1 - 2023-2 5 season) 2025 Influenza Vaccine (#1) 2025 Zoster Vaccines (1 [...]
--- OUTSIDE RECORDS SUMMARY | 2025-07-15 10:47 | XMS_ITS | Encounter Summary ---
Author Organization [employer] Address [address] [place] [address] [place] [address] Care Team Providers Care Leather Novelty Parts Cutter Name Role Phone Eric Trivedi MD Primary Care Prov ider Encounter Details Date Type Department Care Team (Latest Contact Info) Description 01/11/2019 Abstract [facility] CONVERSIONS Dental, Provider, DDS Social History Tobacco [...] on filedocumented in this encounter Care Teams Leather Novelty Parts Cutter Relationship Specialty Start Date End Date Eric Trivedi MD [address] [place] [address] PCP - General Internal Medicine 08/17/19 09/25/23 documented as of this encounter
--- OUTSIDE RECORDS SUMMARY | 2025-07-15 10:47 | XMS_ITS | Encounter Summary ---
Author Organization [facility] Address [address] [place] [address] Phone Care Team Providers Care Marine Electrician Apprentice Name Role Phone Gracie Swartz MD Primary Care Provider [phone] Encounter Details Date Type Department Care Team (Late st Contact Info) Description 07/03/2011 Documentation [facility] [place] [address] [place] [address] Family Medicine, Physician [address] [place] [address] Social History Tobacco Use Types Packs/Day Years [...] on filedocumented in this encounter Care Teams Marine Electrician Apprentice Relationship Specialty Start Date End Date Gracie Swartz MD [address] [place] [address] [place] [address] PCP - General 05/02/17 11/20/22 documented as of this encounter
--- OUTSIDE RECORDS SUMMARY | 2025-07-15 10:47 | XMS_ITS | Clinical Summary ---
Author Organization [facility] Address [address] [place] [phone] Phone Care Team Providers Care Ob/Gyn Physician Name Role Phone Unavailable Primary Care Provider [...] of Strabismus, No family history of *Sudden /[place] under 55 Sister Alive Sister: Asthma Social [...] 80 01/05/2019 2:48 PM EDT Temperature 36.8 C (98.2 F) 01/05/2019 2:48 PM EDT Respiratory Rate - - Oxygen Saturation - - Inhaled Oxygen Concentration - - Weight 70.2 kg (154 lb 12.8 oz) 01/05/2019 2:48 PM EDT Height 162.6 cm (5' 4 ) 01/05/2019 2:48 PM EDT Body Mass Index 26.57 01/05/2019 2:48 PM EDT Plan of Treatment Health Maintenance Due Date Last Done Comments Influenza Vaccines (#1) 2025 07/25/20 18, 01/01/2018, 12/19/2016, Additional history exists COVID-19 Vaccine (2024- season) 2025 DTaP,Tdap,and Td Vaccines (8 - Td or Tdap) 01/05/2029 01/05/2019, 12/29/2008, 09/01/2001, Additional history exists Hepatitis B Vaccines Completed 02/23/1998, 1997, 1997 HIB Vaccines Completed 08/31/1998, 0 05/1998, 1997, Additional history exists Pneumococcal Vaccine Completed 08/25/2000 IPV Vaccines Completed 09/01/2001, 0 05/1998, 1997, Additional history exists MMR Vaccines Completed 01/26/2003, 08/22, 06/09/1998 HPV Vaccines Completed 07/06/2009, 02/20, 12/29/2008 Meningococcal Vaccine Completed 12/01/2014, 009 Hepatitis A Vaccines Completed 12/12/2015, 12/02/19 15 Men B Vaccine Aged Out No longer elig ible based on patient's age to complete this topic Procedures * Due to [place] [email or web address] law, this organization might not be sharing sensitive test results. Procedure Name Priority Date/Time Associated Diagnosis Comments CHLAMYDIA AND GONORRHEA, AMPLIFIED Routine 01/05/2019 3:01 PM EDT Screening examination for bacterial and spirochetal disease from Last 3 Months or Most Recently Relevant to Health Maintenance Results * Due to [place] [email or web address] law, this organization might not be sharing sensitive test results. * Chlamydia and Gonorrhoea, Amplified (01/05/2019 3:01 PM EDT) Chlamydia Trachomatis, DNA Probe NEGATIVE (NEG) [facility] Comment: No Chlamydia Trachomatis RNA detected in this patient's sample (REFERENCE RANGE/NORMAL VALUE: NOT DETECTED) Note: This test uses architectural practice manager- mediated amplification method to detect rRNA from C. Trachomatis URINE GC AMP PROBE NEGATIVE (NEG) [facility] Comment: No Neisseria Gonorrhoeae RNA detected in this patient's sample (REFERENCE RANGE/NORMAL VALUE: NOT DETECTED) NOTE: This test uses architectural practice manager-mediated amplification method to detect rRNA from N.Gonorrhoeae. [...] without risk of sexual abuse. Consult the [facility] if needed. Contact phone number . Therapeutic failure or success cannot be determined with the Aptima Combo2 assay since nucleic acid may persist following appropriate antimicrobial therapy. The Centers for Disease Control and Prevention (CDC) recommends confirmatory retesting using culture or a different nucleic acid amplification test when positive results occur, if indicated. Testing performed or reported by [facility], a Service of [facility], [address] [place] [address] Urine 01/05/2019 3:01 PM EDT 01/05/2019 9:13 PM EDT us Gracie Swartz MD LAB MICROBIOLOGY - GENERAL ORDER ALCIRA Final Result [facility] from Last 3 Months or Most Recently Relevant to Health Maintenance
== END 2025-07-15 09:55 | disposition home or self-care (01) ==
LOC: HO.HWS 09:42
PROVIDERS: Visit Provider Advanced Practice Midwife
DX: Z30.42 Encounter for surveillance of injectable contraceptive (principal)

== ENCOUNTER → 2025-07-15 09:42 | Outpatient (BNVA) | payer OTHER, SELFPAY | PROVIDERS: Visit Provider Advanced Practice Midwife | DX: Z30.42 Encounter for surveillance of injectable contraceptive (principal) | CPT/HCPCS: 96372; 99211; J1050 ==